=== PATIENT | female | born 1990 | race Caucasian/White ===

== ENCOUNTER 2017-11-10 09:45 | Emergency (ER) | payer SELFPAY ==
[2017-11-10 13:09] LABS: Hematocrit 32 % (35-47); Hemoglobin 11.1 g/dl (12.0-16.0); Mean Corpuscular HGB Conc 34 g/dl (31-36); Mean Corpuscular Hemoglobin 27 pg (27-31); Mean Corpuscular Volume 78 fL (80-97); Mean Platelet Volume 9 um3 (7.4-10.4); Red Blood Count 4.13 10^6/ul (4.0-5.4); Red Cell Distribution Width 13 % (10.5-15)
[2017-11-10 13:19] LABS: Albumin 3.5 g/dL (3.2-5.2); BUN/Creatinine Ratio 9.8 (8-20); Calcium 8.9 mg/dL (8.6-10.3); EGFR African American 239.3 (>60); EGFR Non-African American 186.1 (>60); Potassium 3.4 mmol/L (3.5-5.0); Total Protein 6.5 g/dL (6.4-8.9)
[2017-11-10 13:20] LABS: Total Bilirubin 0.5 mg/dL (0.2-1.0)
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
[2017-11-10 16:10] VITALS: BP 126/68
== END 2017-11-10 16:10 | disposition home or self-care (01) ==
LOC: ED 09:45
DX: O26.893 Other specified pregnancy related conditions, third trimester (principal); S40.812A Abrasion of left upper arm, initial encounter; Z3A.34 34 weeks gestation of pregnancy; V89.2XXA Person injured in unspecified motor-vehicle accident, traffic, initial encounter; Y92.9 Unspecified place or not applicable
CPT/HCPCS: 36415; 80053; 83030; 85025; 86900; 86901; 99282

== ENCOUNTER 2018-01-03 19:51 | Inpatient (IN) | payer OTHER ==
[2018-01-03] MEDS ORDERED: Dinoprostone* 10 MG VAG.SUPP VAGINAL ONE (21:00)
[2018-01-03] MEDS ORDERED: Benzocaine/Menthol LOZ* 1 LOZENGE MT PRN (21:50)
[2018-01-03 23:04] LABS: ABS Basophils 0 10^3/ul (0-0.2); ABS Eosinophils 0.1 10^3/ul (0-0.6); ABS Lymphocytes 1.5 10^3/ul (1.0-4.8); ABS Monocytes 0.4 10^3/ul (0-0.8); ABS Nucleated RBC 0 10^3/ul; Eosinophil % 2.1 % (0-6); Hematocrit 33 % (35-47); Lymphocyte % 20.4 % (25-47); Mean Corpuscular HGB Conc 34 g/dl (31-36); Mean Corpuscular Hemoglobin 25 pg (27-31); Mean Corpuscular Volume 74 fL (80-97); Mean Platelet Volume 10 um3 (7.4-10.4); Nucleated Red Blood Cells % 0; Platelet Count 129 10^3/ul (150-450); Red Blood Count 4.42 10^6/ul (4.0-5.4); Red Cell Distribution Width 15 % (10.5-15); White Blood Count 7.1 10^3/ul (3.5-10.8)
== END 2018-01-04 10:20 | disposition home or self-care (01) | DRG 951 ==
LOC: MCHOBOUT 19:51 → MCHOB 21:50
PROVIDERS: ADMIT Obstetrics & Gynecology; ATTEND Midwife
PROC: 3E0P7VZ Introduction of Hormone into Female Reproductive, Via Natural or Artificial Opening (ICD-10-PCS; principal; 2018-01-03)
PROC: 4A1HXCZ Monitoring of Products of Conception, Cardiac Rate, External Approach (ICD-10-PCS; 2018-01-03)
DX: O48.0 Post-term pregnancy (principal); O40.3XX0 Polyhydramnios, third trimester, not applicable or unspecified; Z3A.40 40 weeks gestation of pregnancy
CPT/HCPCS: 36415; 85025; 86850; 86900; 86901; 99214; G0463

== ENCOUNTER 2018-01-05 20:56 | Inpatient (IN) | payer OTHER ==
[2018-01-05] MEDS: Acetaminophen TAB* 325 MG PO PRN (21:53)
[2018-01-05] MEDS ORDERED: Dinoprostone* 10 MG VAG.SUPP VAGINAL ONE (22:00)
[2018-01-05 22:33] LABS: Urine Appearance Clear; Urine Blood Negative (Negative); Urine Color Straw; Urine Ketones 1+ (Negative); Urine Protein Negative (Negative); Urine Specific Gravity 1.002 (1.010-1.030); Urine Urobilinogen Negative (Negative)
[2018-01-05 22:37] LABS: ABS Basophils 0 10^3/ul (0-0.2); ABS Eosinophils 0 10^3/ul (0-0.6); ABS Lymphocytes 0.5 10^3/ul (1.0-4.8); ABS Monocytes 0.4 10^3/ul (0-0.8); ABS Neutrophils 5.9 10^3/ul (1.5-7.7); ABS Nucleated RBC 0 10^3/ul; Eosinophil % 0.2 % (0-6); Hematocrit 33 % (35-47); Mean Corpuscular HGB Conc 34 g/dl (31-36); Mean Corpuscular Hemoglobin 25 pg (27-31); Mean Corpuscular Volume 73 fL (80-97); Mean Platelet Volume 10 um3 (7.4-10.4); Nucleated Red Blood Cells % 0.1; Platelet Count 118 10^3/ul (150-450); Red Blood Count 4.47 10^6/ul (4.0-5.4); Red Cell Distribution Width 15 % (10.5-15); White Blood Count 6.8 10^3/ul (3.5-10.8)
[2018-01-05] MEDS: Oseltamivir CAP* 75 MG CAP PO SCH (22:52)
[2018-01-05] MEDS: Benzocaine/Menthol LOZ* 1 LOZENGE PO PRN (22:52)
[2018-01-06] MEDS: Acetaminophen TAB* 325 MG PO PRN (03:53)
[2018-01-06] MEDS: Oseltamivir CAP* 75 MG CAP PO SCH ×2 (08:41→22:39)
[2018-01-06] MEDS ORDERED: Oxytocin in LR* 20 UNITS/1,000 ML BAG IVPB ONE (09:19)
[2018-01-06] MEDS ORDERED: Oxytocin in LR* 20 UNITS/1,000 ML BAG IVPB SCH (10:00)
[2018-01-06] MEDS ORDERED: fentaNYL* 50 MCG/ML 2 ML VIAL (100 MCG VIAL) IV ONE (20:06)
[2018-01-06] MEDS ORDERED: Misoprostol TAB* 200 MCG PR ONE (20:11)
[2018-01-06] MEDS ORDERED: Dibucaine 1% 28.35 GM TUBE PR PRN (20:11)
[2018-01-06] MEDS ORDERED: Witch Hazel PAD* JAR TOPICAL PRN (20:11)
[2018-01-06] MEDS ORDERED: Glycerin ADULT SUPP PR PRN (20:11)
[2018-01-06] MEDS ORDERED: OXYTOCIN* 10 UNITS/ML 1 ML VIAL IM ONE (20:11)
[2018-01-06] MEDS ORDERED: Simethicone TAB* 80 MG TAB.CHEW PO SCH (21:00)
[2018-01-06] MEDS ORDERED: fentaNYL* 50 MCG/ML 2 ML VIAL (100 MCG VIAL) ONE (22:12)
[2018-01-06] MEDS: Docusate CAP* 100 MG PO SCH (22:29)
[2018-01-07] MEDS: Acetaminophen TAB* 325 MG PO PRN ×2 (00:27→14:30)
[2018-01-07] MEDS: Ibuprofen TAB* 600 MG PO PRN ×3 (04:23→17:45)
[2018-01-07 06:18] LABS: ABS Basophils 0 10^3/ul (0-0.2); ABS Eosinophils 0 10^3/ul (0-0.6); ABS Lymphocytes 1.3 10^3/ul (1.0-4.8); ABS Monocytes 0.7 10^3/ul (0-0.8); ABS Neutrophils 9.6 10^3/ul (1.5-7.7); ABS Nucleated RBC 0 10^3/ul; Eosinophil % 0.1 % (0-6); Hematocrit 26 % (35-47); Hemoglobin 8.7 g/dl (12.0-16.0); Lymphocyte % 11.1 % (25-47); Mean Corpuscular HGB Conc 33 g/dl (31-36); Mean Corpuscular Hemoglobin 24 pg (27-31); Mean Corpuscular Volume 74 fL (80-97); Mean Platelet Volume 9 um3 (7.4-10.4); Nucleated Red Blood Cells % 0; Platelet Count 132 10^3/ul (150-450); Red Blood Count 3.57 10^6/ul (4.0-5.4); Red Cell Distribution Width 15 % (10.5-15); White Blood Count 11.7 10^3/ul (3.5-10.8)
[2018-01-07] MEDS: Docusate CAP* 100 MG PO SCH ×3 (10:22→20:56)
[2018-01-07] MEDS: Oseltamivir CAP* 75 MG CAP PO SCH ×2 (10:23→20:56)
[2018-01-07] MEDS: Ferrous Gluconate TAB* 324 MG TAB PO SCH ×2 (10:23→20:55)
[2018-01-08] MEDS: Benzocaine/Menthol LOZ* 1 LOZENGE PO PRN (05:34)
[2018-01-08] MEDS: Ibuprofen TAB* 600 MG PO PRN ×2 (05:36→13:44)
[2018-01-08] MEDS: Oseltamivir CAP* 75 MG CAP PO SCH (09:29)
[2018-01-08] MEDS: Ferrous Gluconate TAB* 324 MG TAB PO SCH (09:29)
[2018-01-08] MEDS: Docusate CAP* 100 MG PO SCH ×2 (09:29→13:44)
[2018-01-08 09:51] VITALS: BP 118/71
== END 2018-01-08 13:48 | disposition home or self-care (01) | DRG 560 ==
LOC: MCHOBOUT 20:56 → MCHOB 21:49
PROVIDERS: ADMIT Obstetrics & Gynecology; ATTEND Obstetrics & Gynecology
PROC: 10E0XZZ Delivery of Products of Conception, External Approach (ICD-10-PCS; principal; 2018-01-06)
PROC: 3E033VJ Introduction of Other Hormone into Peripheral Vein, Percutaneous Approach (ICD-10-PCS; 2018-01-06)
PROC: 10907ZC Drainage of Amniotic Fluid, Therapeutic from Products of Conception, Via Natural or Artificial Opening (ICD-10-PCS; 2018-01-06)
DX: O48.0 Post-term pregnancy (principal); O75.2 Pyrexia during labor, not elsewhere classified; O72.1 Other immediate postpartum hemorrhage; O77.0 Labor and delivery complicated by meconium in amniotic fluid; O40.3XX0 Polyhydramnios, third trimester, not applicable or unspecified; O66.0 Obstructed labor due to shoulder dystocia; Z3A.41 41 weeks gestation of pregnancy; Z37.0 Single live birth
CPT/HCPCS: 36415; 59200; 81003; 85025; 87502; 87651; A9270-GY; J2590; J3010

== ENCOUNTER 2018-04-20 09:11 | Emergency (ER) | payer OTHER ==
[2018-04-20] MEDS ORDERED: Lidocaine 1%* 5 ML VIAL INJ ONE (09:34)
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
[2018-04-20 10:33] VITALS: BP 114/83
--- NOTE | 2018-04-20 10:53 | ED ---
Skin Complaint - HPI Summary HPI Summary: Pt. is a 27-year-old female who presents emergency for laceration to her right wrist that occurred just before arrival. Patient states her house store has glass pain is intermittent and she was knocking on the door to her house after she forgot her lunch when the pain broke and she cut her left wrist on glass. Symptoms are mild in severity. Touching affected areas makes symptoms worse. Rest makes symptoms better. States her last tetanus immunization was roughly one year ago. - History of Current Complaint Chief Complaint: EDLacSutureRecheck Time Seen by Provider: 04/20/18 09:26 Stated Complaint: RT HAND LAC Hx Obtained From: Patient Hx Last Menstrual Period: 05/29/16 Pain Intensity: 0 Pain Scale Used: 0-10 Numeric - Allergy/Home Medications Allergies/Adverse Reactions: Allergies Allergy/AdvReac Type Severity Reaction Status Date / Time lamotrigine [From Lamictal] Allergy Hallucinati Verified 04/20/18 09:19 ons Home Medications: Home Medications Norethindrone [Deblitane] 0.35 mg PO DAILY 04/20/18 [History Confirmed 04/20/18] PMH/Surg Hx/FS Hx/Imm Hx Previously Healthy: Yes Endocrine/Hematology History: Denies: Hx Diabetes, Hx Thyroid Disease Cardiovascular History: Denies: Hx Hypertension, Hx Pacemaker/ICD Respiratory History: Denies: Hx Asthma, Hx Chronic Obstructive Pulmonary Disease (COPD) GI History: Denies: Hx Ulcer History: Reports: Other Problems/Disorders - Medical Sep 2016 Denies: Hx Renal Disease Sensory History: Denies: Hx Hearing Aid Psychiatric History: Denies: Hx Panic Disorder - Surgical History Surgery Procedure, Year, and Place: Age 2 tRACHEITIS. RIGHT FOOT SURGERY AGE 14 REMOVAL OF SEWING NEEDLE - Immunization History Date of Tetanus Vaccine: UP TO DATE PER PT Infectious Disease History: No Infectious Disease History: Denies: Hx Clostridium Difficile, Hx Hepatitis, Hx Human Immunodeficiency Virus (HIV), Hx Shingles, Hx Tuberculosis, Hx Known/Suspected VRE, Hx Known/ Suspected VRSA, History Other Infectious Disease, Traveled Outside the [place] in Last 30 Days - Family History Known Family History: Positive: Other - hypothyroidism-mother Negative: Diabetes - Social History Occupation: Employed Full-time Lives: With Family Alcohol Use: None Hx Substance Use: No Substance Use Type: Reports: None Hx Tobacco Use: No Smoking Status (MU): Never Smoked Tobacco Review of Systems Positive: Other - Laceration to right wrist Negative: Weakness, Paresthesia, Numbness All Other Systems Reviewed And Are Negative: Yes Physical Exam Triage Information Reviewed: Yes Vital Signs On Initial Exam: Initial Vitals Temp Pulse Resp BP Pulse Ox 97.7 F 88 16 158/80 99 04/20/18 09:15 04/20/18 09:15 04/20/18 09:15 04/20/18 09:15 04/20/18 09:15 Vital Signs Reviewed: Yes Appearance: Positive: Well-Appearing - Pt. sitting on bed in NAD. Family present. Skin: Positive: Warm, Dry Head/Face: Positive: Normal Head/Face Inspection Eyes: Positive: Normal Neck: Positive: Supple Musculoskeletal: Positive: Other - 2 cm linear laceration noted to the distal right forearm on the volar aspect. No muscle or tendon involvement. Good palpable radial pulse. Superficial abrasions to the 2nd and 4th digits. No tendon involvement. Neurological: Positive: Normal, CN Intact II-III Psychiatric: Positive: Affect/Mood Appropriate Procedures - Laceration/Wound Repair 1 Location: upper extremity Description: Linear Anesthesia: Local, 1.0%, Lido Betadine Prep?: No - hibiclens Laceration/Wound Explored: clean, no foreign body removed Closure: Single Layer Suture Type: Nylon - 3 4-0 Number of Sutures: 3 Layer Closure?: No Sterile Dressing Applied?: Yes Diagnostics - Vital Signs Vital Signs Temp Pulse Resp BP Pulse Ox 04/20/18 10:31 97.7 F 60 14 114/83 99 04/20/18 09:15 97.7 F 88 16 158/80 99 - Laboratory Lab Statement: Any lab studies that have been ordered have been reviewed, and results considered in the medical decision making process. Course/Dx - Course Course Of Treatment: Pt. presenting for simple arm laceration that was repaired as noted above. Suture removal in 7-10 days. Keep wound clean and dry. To return to ER for redness, swelling or drainage from wound site. - Diagnoses Provider Diagnoses: Abrasion, Laceration Discharge - Sign-Out/Discharge Documenting (check all that apply): Discharge/Admit/Transfer - Discharge Plan Condition: Good Disposition: HOME Forms: *Work Release Referrals: Franky Garcia MD [Primary Care Provider] - Additional Instructions: Suture removal in 7-10 days Keep wound clean and dry Return to ER for redness, swelling or drainage from suture site - Billing Disposition and Condition Condition: GOOD Disposition: HOME
== END 2018-04-20 10:31 | disposition home or self-care (01) ==
LOC: ED 09:11
DX: S61.511A Laceration without foreign body of right wrist, initial encounter (principal); W25.XXXA Contact with sharp glass, initial encounter; Y92.89 Other specified places as the place of occurrence of the external cause; S60.418A Abrasion of other finger, initial encounter
CPT/HCPCS: 12001; 99281

== ENCOUNTER 2018-07-02 22:46 | Emergency (ER) | payer OTHER ==
[2018-07-02] MEDS ORDERED: NS 0.9% 1000 ML* 1,000 ML IV ONE (23:46)
[2018-07-03 00:29] LABS: ABS Basophils 0 10^3/ul (0-0.2); ABS Eosinophils 0.2 10^3/ul (0-0.6); ABS Lymphocytes 1.8 10^3/ul (1.0-4.8); ABS Monocytes 0.3 10^3/ul (0-0.8); ABS Neutrophils 3.2 10^3/ul (1.5-7.7); ABS Nucleated RBC 0 10^3/ul; Eosinophil % 3.1 % (0-6); Hematocrit 33 % (35-47); Lymphocyte % 32.6 % (25-47); Mean Corpuscular HGB Conc 34 g/dl (31-36); Mean Corpuscular Hemoglobin 24 pg (27-31); Mean Corpuscular Volume 70 fL (80-97); Mean Platelet Volume 10.3 um3 (7.4-10.4); Nucleated Red Blood Cells % 0.1; Platelet Count 164 10^3/ul (150-450); Red Blood Count 4.67 10^6/ul (4.00-5.40); Red Cell Distribution Width 21 % (10.5-15); White Blood Count 5.6 10^3/ul (3.5-10.8)
[2018-07-03 00:32] LABS: EGFR Non-African American 73.2 (>60)
[2018-07-03 00:37] LABS: Urine Appearance Clear; Urine Blood Negative (Negative); Urine Color Straw; Urine Ketones Negative (Negative); Urine Protein Negative (Negative); Urine Specific Gravity 1.009 (1.010-1.030); Urine Urobilinogen Negative (Negative)
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
[2018-07-03] MEDS ORDERED: Levothyroxine TAB* 100 MCG TAB PO ONE (01:15)
[2018-07-03 01:46] VITALS: BP 121/64
== END 2018-07-03 01:40 | disposition home or self-care (01) ==
LOC: ED 22:46
DX: G73.7 Myopathy in diseases classified elsewhere (principal); E03.9 Hypothyroidism, unspecified; R53.1 Weakness; E34.8 Other specified endocrine disorders
CPT/HCPCS: 36415; 80053; 81003; 82550; 83605; 83735; 83874; 84436; 84443; 84702; 85025; 85652; 86140; 99282; A9270-GY

== ENCOUNTER 2018-07-07 10:32 | Emergency (ER) | payer OTHER ==
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
--- NOTE | 2018-07-07 11:08 | UC ---
UC General HPI - HPI Summary HPI Summary: The pt is a 27 y/o female presenting to the [facility] c/o UE and LE numbness since starting Synthroid medication one week ago. Before that, she had muscle aches lasting about 2 weeks for which she went to the ED and was diagnosed with hypothyroidism. She saw her PCP yesterday (07/06/2018) and was referred to [facility] for further evaluation. Her PCP is Franky Bacon MD at [facility]. The pt notes tingling in the fingers, unusual forgetfulness, confusion, and difficulty concentrating. This is scribe Maria Guadalupe Lantigua documenting for attending Jack Tamez. I, Jack Tamez MD, personally performed the services described in this documentation as scribed in my presence and it is both accurate and complete. - History of Current Complaint Chief Complaint: EDGeneral Stated Complaint: ABNORMAL LABS Time Seen by Provider: 07/07/18 11:00 Hx Obtained From: Patient Hx Last Menstrual Period: 05/29/16 Onset/Duration: Lasting Weeks - 1 week, Still Present, Worse Since - Today Current Severity: Mild Pain Intensity: 4 Associated Signs & Symptoms: Positive: Confusion, Recent Medication Changes - Started taking Synthroid one week ago for hypothyroidism, Other - Positive: notes tingling in the fingers, unusual forgetfulness, confusion, and difficulty concentrating - Allergy/Home Medications Allergies/Adverse Reactions: Allergies Allergy/AdvReac Type Severity Reaction Status Date / Time lamotrigine [From Lamictal] Allergy Hallucinati Verified 07/07/18 11:11 ons PMH/Surg Hx/FS Hx/Imm Hx Previously Healthy: No Endocrine History: Hypothyroidism GI/ History: Other - Medical in September 2016 Other GI/ History: x - Surgical History Surgical History: Yes Surgery Procedure, Year, and Place: Age 2 tRACHEITIS. RIGHT FOOT SURGERY AGE 14 REMOVAL OF SEWING NEEDLE - Family History Known Family History: Positive: Other - hypothyroidism-mother Negative: Diabetes - Social History Occupation: Employed Full-time Lives: With Family Alcohol Use: None Substance Use Type: None Smoking Status (MU): Never Smoked Tobacco - Immunization History Most Recent Influenza Vaccination: NEVER GETS IT Most Recent Tetanus Shot: UTD Most Recent Pneumonia Vaccination: never Review of Systems Constitutional: Other - Positive:Unsual forgetfulness and difficulty concentrating Neurological: Numbness - UE and LE, Other - Positive: Tingling in the fingers All Other Systems Reviewed And Are Negative: Yes Physical Exam - Summary Physical Exam Summary: Appearance: The patient is well-nourished in no acute distress and in no acute pain. Skin: The skin is warm and dry and skin color reflects adequate perfusion. HEENT: The head is normocephalic and atraumatic. The pupils are equal and reactive. The conjunctivae are clear and without drainage. Nares are patent and without drainage. Mouth reveals moist mucous membranes and the throat is without erythema and exudate. The external ears are intact. The ear canals are patent and without drainage. The tympanic membranes are intact. Neck: The neck is supple with full range of motion and non-tender. There are no carotid bruits. There is no neck vein distension. Respiratory: Chest is non-tender. Lungs are clear to auscultation and breath sounds are symmetrical and equal. Cardiovascular: Heart is regular rate and rhythm. There is no murmur or rub auscultated. There is no peripheral edema and pulses are symmetrical and equal. Abdomen: The abdomen is soft and non-tender. There are normal bowel sounds heard in all four quadrants and there is no organomegaly palpated. Musculoskeletal: There is no back tenderness noted. Extremities are non-tender with full range of motion. There is good capillary refill. There is no peripheral edema or calf tenderness elicited. Neurological: Patient is alert and oriented to person, place and time. The patient has symmetrical motor strength in all four extremities. Cranial nerves are grossly intact. Deep tendon reflexes are symmetrical and equal in all four extremities. Psychiatric: The patient has an appropriate affect and does not exhibit any anxiety or depression. Triage Information Reviewed: Yes Vital Signs: Initial Vital Signs Temp 97.5 F 07/07/18 10:39 Pulse 75 07/07/18 10:39 Resp 16 07/07/18 10:39 BP 122/70 07/07/18 10:39 Pulse Ox 100 07/07/18 10:39 Vital Signs Reviewed: Yes Re-Evaluation - Re-Evaluation First Eval Re-Evaluation Time: 13:38 Change: Unchanged - The pt feels unchanged and is ready for discharge. Course/Dx - Course Course Of Treatment: Ms. Olivares has been fighting with myalgia and neurological symptoms for several weeks. She has been diagnosed as having a myopathy and hypothyroidism. She has had her thyroid hormone replacement therapy but it hasn't helped her symptomatology. Her most concerning symptomatology today is that her hands are tingling when she wakes up in the morning and feel tired and full during the day and seemed to be sluggish when she tries to use them. She also complains of difficulty concentrating today. Her TSH in T3 are improved as is her CK. Her hand symptomatology may be carpal tunnel syndrome. I spoke with Dr. Pratt about the need for an urgent MRI and he felt that this could be worked up as an outpatient. I recommended close follow-up. - Differential Dx - Multi-Symptom Provider Diagnoses: Parasthesias, Myopathy - Physician Notifications Discussed Patient Care With: Yazan Ann - Hospitalist Time Discussed With Above Provider: 11:23 Instructed by Provider To: Other - The provider recommended conducting additional lab tests before conducting neural exams. Discharge - Sign-Out/Discharge Documenting (check all that apply): Patient Departure - DC - Discharge Plan Condition: Stable Disposition: HOME Patient Education Materials: Paresthesia (ED) Referrals: Franky Garcia MD [Primary Care Provider] - 3 Days Additional Instructions: Return to ED for any new or worsening symptoms - Billing Disposition and Condition Condition: STABLE Disposition: Home
[2018-07-07 11:12] LABS: ABS Basophils 0 10^3/ul (0-0.2); ABS Eosinophils 0.2 10^3/ul (0-0.6); ABS Lymphocytes 1.1 10^3/ul (1.0-4.8); ABS Monocytes 0.2 10^3/ul (0-0.8); ABS Neutrophils 2.4 10^3/ul (1.5-7.7); ABS Nucleated RBC 0 10^3/ul; Eosinophil % 4.3 % (0-6); Hematocrit 33 % (35-47); Lymphocyte % 27.6 % (25-47); Mean Corpuscular HGB Conc 33 g/dl (31-36); Mean Corpuscular Hemoglobin 24 pg (27-31); Mean Corpuscular Volume 71 fL (80-97); Mean Platelet Volume 9.1 um3 (7.4-10.4); Nucleated Red Blood Cells % 0; Platelet Count 146 10^3/ul (150-450); Red Blood Count 4.62 10^6/ul (4.00-5.40); Red Cell Distribution Width 21 % (10.5-15); White Blood Count 3.9 10^3/ul (3.5-10.8)
[2018-07-07 11:28] LABS: EGFR Non-African American 81.3 (>60)
[2018-07-07 14:19] VITALS: BP 125/82
[2018-07-09 17:21] LABS: B. miyamotoi PCR, B Negative (Negative)
[2018-07-10 15:56] LABS: B garinii/B afzelii PCR Negative (Negative)
== END 2018-07-07 14:18 | disposition home or self-care (01) ==
LOC: ED 10:32
DX: R20.2 Paresthesia of skin (principal); G72.9 Myopathy, unspecified; E03.9 Hypothyroidism, unspecified; Z79.899 Other long term (current) drug therapy; Z88.8 Allergy status to other drugs, medicaments and biological substances
CPT/HCPCS: 36415; 80053; 82550; 82607; 82746; 83090; 84439; 84443; 85025; 85652; 86038; 86140; 87476; 87798; 99282

== ENCOUNTER 2018-08-03 10:17 | Emergency (ER) | payer OTHER ==
[2018-08-03 10:33] VITALS: BP 121/88
--- OUTSIDE RECORDS SUMMARY | 2018-08-03 10:39 | XMS REPORT | Continuity of Care Document ---
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 [place] [id number] Effective: 2017 Policy Number: Venu Duke [id number] Medicaid PayID: 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 [employer] Tobacco Use Start: Unknown Never Smoked Cigarettes ETOH Use Occasionally consumes alcohol Tobacco Use Start: Unknown Patient has never smoked Exercise Type/Frequency Does not exercise Allergies, Adverse Reactions, Alerts Date Description Reaction Status Severity Comments 09/04/2015 Lamictal Active hallucinations Medications Medication Date Status Form Strength Qnty SIG Indications Ordering Provider Levothyroxine 07/11/ Active Tablets 112mcg 30tabs 1 by mouth Franky Sodium 2018 every day MD Jose Control / Active Unknown Pill 0000 Wellbutrin SR 03/09/ Hx Tablets ER 150mg 60tabs take one F32.89 Franky 2018 - 12HR tablet by Jose 06/01/ mouth , 2018 twice a day Iron (Ferrous 02/21/ Hx Tablets 256(28Fe) 60tabs 1 tab by Franky Pressley) 2018 - mg mouth Souleymaneetderks 06/01/ twice a , 2018 day 09/22/ Hx Tablets 27-1mg 30tabs Take one N91.1 Franky 2015 - by mouth Souleymaneetderks 11/02/ daily , 2015 Iron (Ferrous 06/09/ Hx Tablets 256(28Fe) 60tabs 1 tab by Franky Pressley) 2015 - mg mouth Souleym[place]etderks 02/21/ twice a , 2017 day Mupirocin 06/08/ Hx Ointment 2% 22gm 1 dose L02.818 Franky 2016 - apply to Soule[place]etderks 02/21/ affected , 2018 area three times a day Vitamin D-3 25/ Hx Capsules 1000Unit 60caps 2 tab by Franky 2016 - mouth Heetderks 02/21/ daily , 2018 Vitamin B-12 /25/ Hx Tablets 1000mcg 30tabs 1 tab by Franky 2016 - Sub mouth Souleymaneetderks 02/21/ daily , 2018 Vitamin B6 /25/ Hx Tablets 250mg 30tabs 1 tab by Franky 2016 - mouth Heetderks 02/21/ daily , 2018 Fish Oil 25/ Hx Capsules 1000mg 30caps 1 tab by Franky Magana-Mary 2015 - mouth Heetderks 02/21/ daily , 2018 Albenza /16/ Hx Tablets 200mg 4tabs 2 tab by Franky 2014 - mouth Heetderks 02/21/ every 2 , 2018 weeks / Hx Tablets 1 by mouth Unknown 0000 - every day 2017 Levothyroxine / Hx Tablets 100mcg Unknown Sodium 0000 - 2017 Immunizations CPT Code Status Date Vaccine Lot # [id number] Given 11/02/2016 HPV Vaccine 9 (Gardasil 9), 3 Dose [id number] Given 06/08/2016 HPV Vaccine 9 (Gardasil 9), 3 Dose [id number] Given 01/13/2016 Tdap (Adacel) [id number] Given 01/13/2016 HPV Vaccine 9 (Gardasil 9), 3 Dose [id number] Refused 02/21/2018 Influenza Virus Vaccine, Quadrivalent, 3 Yr > Quad , Preserv Free Vital Signs Date Vital Result Comment 08/02/2018 10:32am Weight 190.00 lb Weight 86.184 kg BP Systolic 110 mmHg BP Diastolic 72 mmHg Heart Rate 68 /min Body Temperature 97.9 F Respiratory Rate 12 /min 07/19/2018 11:09am Weight 189.00 lb Weight 85.730 kg BP Systolic 102 mmHg BP Diastolic 70 mmHg Heart Rate 88 /min Body Temperature 97.7 F Respiratory Rate 16 /min 07/11/2018 11:39am Weight 190.00 lb Weight 86.184 kg BP Systolic 125 mmHg BP Diastolic 80 mmHg Heart Rate 80 /min Body Temperature 97.9 F O2 % BldC Oximetry 96 % 07/03/2018 4:20pm Weight 190.00 lb Weight 86.184 kg BP Systolic 110 mmHg BP Diastolic 72 mmHg Heart Rate 72 /min Body Temperature 97.4 F Respiratory Rate 16 /min 06/28/2018 10:35am Weight 190.00 lb Weight 86.184 kg BP Systolic 128 mmHg BP Diastolic 88 mmHg Heart Rate 78 /min Body Temperature 97.5 F Respiratory Rate 16 /min O2 % BldC Oximetry 99 % 06/01/2018 2:35pm Weight 184.00 lb Weight 83.462 kg BP Systolic 118 mmHg BP Diastolic 76 mmHg Heart Rate 80 /min Body Temperature 97.5 F Respiratory Rate 15 /min O2 % BldC Oximetry 98 % 04/09/2018 2:02pm Weight 170.00 lb Weight 77.112 kg BP Systolic 124 mmHg BP Diastolic 82 mmHg Heart Rate 92 /min Body Temperature 96.8 F Respiratory Rate 16 /min 03/09/2018 9:07am Weight 173.00 lb Weight 78.473 kg BP Systolic 122 mmHg BP Diastolic 74 mmHg Heart Rate 88 /min Body Temperature 97.0 F Respiratory Rate 16 /min 02/21/2018 11:06am Weight 171.00 lb Weight 77.566 kg BP Systolic 118 mmHg BP Diastolic 80 mmHg Heart Rate 84 /min Body Temperature 98.0 F Height 63 inches 5'3" BMI (Body Mass Index) 30.3 kg/m2 O2 % BldC Oximetry 99 % 11/02/2016 3:34pm Weight 201.00 lb Weight 91.174 kg BP Systolic 118 mmHg BP Diastolic 88 mmHg Heart Rate 77 /min Body Temperature 98.1 F Respiratory Rate 16 /min O2 % BldC Oximetry 98 % 09/22/2016 2:00pm Weight 200.00 lb Weight 90.720 kg BP Systolic 110 mmHg BP Diastolic 74 mmHg Heart Rate 96 /min O2 % BldC Oximetry 98 % 06/08/2016 3:10pm Weight 196.00 lb Weight 88.906 kg BP Systolic 126 mmHg BP Diastolic 78 mmHg Heart Rate 78 /min Body Temperature 97.8 F Respiratory Rate 18 /min 01/19/2016 5:03pm Weight 182.00 lb Weight 82.555 kg BP Systolic 122 mmHg BP Diastolic 66 mmHg Heart Rate 72 /min Body Temperature 98.6 F 01/13/2016 11:14am Weight 184.00 lb Weight 83.462 kg BP Systolic 130 mmHg BP Diastolic 75 mmHg Heart Rate 64 /min 12/14/2015 4:51pm Weight 185.00 lb Weight 83.916 kg BP Systolic 128 mmHg BP Diastolic 76 mmHg Heart Rate 84 /min Body Temperature 98.4 F O2 % BldC Oximetry 98 % 09/04/2015 10:19am Weight 174.00 lb Weight 78.926 kg BP Systolic 110 mmHg BP Diastolic 64 mmHg Heart Rate 68 /min Height 63 inches 5'3" BMI (Body Mass Index) 30.8 kg/m2 Results Test Date Facility Test Result H/L Range Note CBC Auto Diff 08/02/2018 [facility] White Blood 4.0 10^3/uL 3.5-10.8 [phone] Count Red Blood Count 4.65 10^6/uL 4.00-5.40 Hemoglobin 11.2 g/dL Low 12.0-16.0 Hematocrit 34 % Low 35-47 Mean Corpuscular Volume 74 fL Low 80-97 1 Mean Corpuscular Hemoglobin 24 pg Low 27-31 Mean Corpuscular HGB Conc 33 g/dL 31-36 Red Cell Distribution Width 19 % High 10.5-15 Platelet Count 170 10^3/uL 150-450 Mean Platelet Volume 9.7 um3 7.4-10.4 Abs Neutrophils 2.3 10^3/uL 1.5-7.7 Abs Lymphocytes 1.2 10^3/uL 1.0-4.8 Abs Monocytes 0.3 10^3/uL 0-0.8 Abs Eosinophils 0.2 10^3/uL 0-0.6 Abs Basophils 0 10^3/uL 0-0.2 Abs Nucleated RBC 0 10^3/uL Granulocyte % 57.7 % 38-83 Lymphocyte % 30.1 % 25-47 Monocyte % 6.7 % 0-7 Eosinophil % 5.0 % 0-6 Basophil % 0.5 % 0-2 Nucleated Red Blood Cells % 0.1 Laboratory test 08/02/2018 [facility] TSH (Thyroid < pending> finding [phone] Stim Horm) Free T4 (Free Thyroxine) <pending> T3 Total <pending> Creatine Kinase(CK) <pending> CBC Auto Diff 07/19/2018 [facility] White Blood 3.9 10^3/uL 3.5-10.8 [phone] Count Red Blood Count 4.62 10^6/uL 4.00-5.40 Hemoglobin 11.3 g/dL Low 12.0-16.0 Hematocrit 34 % Low 35-47 Mean Corpuscular Volume 73 fL Low 80-97 2 Mean Corpuscular Hemoglobin 24 pg Low 27-31 Mean Corpuscular HGB Conc 34 g/dL 31-36 Red Cell Distribution Width 21 % High 10.5-15 Platelet Count 164 10^3/uL 150-450 Mean Platelet Volume 10.1 um3 7.4-10.4 Abs Neutrophils 2.4 10^3/uL 1.5-7.7 Abs Lymphocytes 1.1 10^3/uL 1.0-4.8 Abs Monocytes 0.3 10^3/uL 0-0.8 Abs Eosinophils 0.1 10^3/uL 0-0.6 Abs Basophils 0 10^3/uL 0-0.2 Abs Nucleated RBC 0 10^3/uL Granulocyte % 61.2 % 38-83 Lymphocyte % 27.4 % 25-47 Monocyte % 7.0 % 0-7 Eosinophil % 3.7 % 0-6 Basophil % 0.7 % 0-2 Nucleated Red Blood Cells % 0 Comp Metabolic Panel 07/19/2018 [facility] Sodium 139 mmol/L 135-145 [phone] Potassium 3.8 mmol/L 3.5-5.0 Chloride 106 mmol/L 101-111 Co2 Carbon Dioxide 26 mmol/L 22-32 Anion Gap 7 mmol/L 2-11 Glucose 93 mg/dL 70-100 Blood Urea Nitrogen 14 mg/dL 6-24 Creatinine 0.77 mg/dL 0.51-0.95 BUN/Creatinine Ratio 18.2 8-20 Calcium 9.2 mg/dL 8.6-10.3 Total Protein 7.3 g/dL 6.4-8.9 Albumin 4.9 g/dL 3.2-5.2 Globulin 2.4 g/dL 2-4 Albumin/Globulin Ratio 2.0 1-3 Total Bilirubin 0.70 mg/dL 0.2-1.0 Alkaline Phosphatase 56 U/L 34-104 Alt 28 U/L 7-52 Ast 22 U/L 13-39 Egfr Non- 89.3 >60 Egfr 108.0 >60 3 Laboratory test 07/19/2018 [facility] TSH (Thyroid 9.86 High 0.34-5.60 4 finding [phone] Stim Horm) mcIU/mL Free T4 (Free Thyroxine) 0.87 ng/dL 0.61-1.12 5 T3 Total 101 ng/dL 87-178 6 Creatine Kinase(CK) 192 U/L 10-223 7 Laboratory test 07/07/2018 [facility] Homocysteine 10 mcmol/L 8 finding [phone] CBC Auto Diff 07/07/2018 [facility] White Blood Count 3.9 10^3/uL 3.5-5 [phone] 0.8 Red Blood Count 4.62 10^6/uL 4.00-5.40 Hemoglobin 11.0 g/dL Low 12.0-16.0 Hematocrit 33 % Low 35-47 Mean Corpuscular Volume 71 fL Low 80-97 9 Mean Corpuscular Hemoglobin 24 pg Low 27-31 Mean Corpuscular HGB Conc 33 g/dL 31-36 Red Cell Distribution Width 21 % High 10.5-15 Platelet Count 146 10^3/uL Low 150-450 Mean Platelet Volume 9.1 um3 7.4-10.4 Abs Neutrophils 2.4 10^3/uL 1.5-7.7 Abs Lymphocytes 1.1 10^3/uL 1.0-4.8 Abs Monocytes 0.2 10^3/uL 0-0.8 Abs Eosinophils 0.2 10^3/uL 0-0.6 Abs Basophils 0 10^3/uL 0-0.2 Abs Nucleated RBC 0 10^3/uL Granulocyte % 62.5 % 38-83 Lymphocyte % 27.6 % 25-47 Monocyte % 5.0 % 0-7 Eosinophil % 4.3 % 0-6 Basophil % 0.6 % 0-2 Nucleated Red Blood Cells % 0 Comp Metabolic Panel 07/07/2018 [facility] Sodium 139 mmol/L 135-145 [phone] Potassium 4.0 mmol/L 3.5-5.0 Chloride 107 mmol/L 101-111 Co2 Carbon Dioxide 26 mmol/L 22-32 Anion Gap 6 mmol/L 2-11 Glucose 91 mg/dL 70-100 Blood Urea Nitrogen 16 mg/dL 6-24 Creatinine 0.84 mg/dL 0.51-0.95 BUN/Creatinine Ratio 19.0 8-20 Calcium 9.4 mg/dL 8.6-10.3 Total Protein 7.4 g/dL 6.4-8.9 Albumin 4.7 g/dL 3.2-5.2 Globulin 2.7 g/dL 2-4 Albumin/Globulin Ratio 1.7 1-3 Total Bilirubin 0.50 mg/dL 0.2-1.0 Alkaline Phosphatase 59 U/L 34-104 Alt 29 U/L 7-52 Ast 26 U/L 13-39 Egfr Non- 81.3 >60 Egfr 98.4 >60 10 Laboratory test 07/07/2018 [facility] C Reactive 2.28 mg/L <8.01 finding [phone] Protein TSH (Thyroid Stimulating Horm) 38.92 mcIU/mL High 0.34-5.60 Free T4 0.58 ng/dL Low 0.61-1.12 Erythrocyte Sed Rate 11 mm/Hr 0-14 Creatine Kinase 291 U/L High 10-223 Folate 13.00 ng/mL >3.99 Vitamin B12 405 pg/mL 180-914 11 Anti Nuclear Antibody 0.2 U 12 Tick-Borne Panel 07/07/2018 [facility] Babesia Negative Negative PCR Blood [phone] microti PCR Babesia ducani Negative Negative Babesia divergens/Mo-1 Negative Negative 13 Anaplasma phagocytophilum Negative Negative Ehrlichia chaffeensis Negative Negative Ehrlichia ewingii/canis Negative Negative Ehrlichia muris-like Negative Negative 14 B. miyamotoi PCR, B Negative Negative 15 Lyme Disease 07/07/2018 [facility] B burgdorferi Negative Negative PCR [phone] PCR, Blood B mayonii PCR Negative Negative B garinii/B afzelii PCR Negative Negative Lyme Disease PCR Comment See Comment 16 Laboratory test 07/06/2018 [facility] Thyroperoxidase AB 40.97 High <9 17 finding [phone] IU/mL Thyroglobulin Antibody 2.1 IU/mL <4.0 18 Laboratory test 07/06/2018 [facility] Free T4 (Free 0.58 Low 0.61-1.12 19 finding [phone] Thyroxine) ng/dL T3 Total 83 ng/dL Low 87-178 20 Basic Metabolic 07/06/2018 [facility] Sodium 140 mmol /L 135-145 Panel [phone] Potassium 3.7 mmol/L 3.5-5.0 Chloride 106 mmol/L 101-111 Co2 Carbon Dioxide 27 mmol/L 22-32 Anion Gap 7 mmol/L 2-11 Glucose 84 mg/dL 70-100 Blood Urea Nitrogen 14 mg/dL 6-24 Creatinine 0.90 mg/dL 0.51-0.95 BUN/Creatinine Ratio 15.6 8-20 Calcium 9.6 mg/dL 8.6-10.3 Egfr Non- 75.1 >60 Egfr 90.9 >60 21 Laboratory test 07/06/2018 [facility] Creatine 351 U/ L High 10-223 22 finding [phone] Kinase(CK) Urinalysis 07/03/2018 [facility] Urine Color Straw Profile [phone] Urine Appearance Clear Urine Specific Kohler 1.009 Low 1.010-1.030 Urine pH 6.0 5-9 Urine Urobilinogen Negative Negative Urine Ketones Negative Negative Urine Protein Negative Negative Urine Leukocytes Negative Negative Urine Blood Negative Negative Urine Nitrite Negative Negative Urine Bilirubin Negative Negative Urine Glucose Negative Negative Laboratory test 07/03/2018 [facility] Lactic Acid 1.0 mmol/L 0.5-2.0 23 finding [phone] CBC Auto Diff 07/03/2018 [facility] White Blood 5.6 10^3/uL 3.5-10.8 [phone] Count Red Blood Count 4.67 10^6/uL 4.00-5.40 Hemoglobin [...] Red Blood Cells % 0.1 Laboratory test 07/03/2018 [facility] Erythrocyte Sed 11 mm/Hr 0-14 finding [phone] Rate Comp Metabolic 07/03/2018 [facility] Sodium 137 mmol/ L 135-145 Panel [phone] Potassium 3.6 mmol/L 3.5-5.0 Chloride 106 mmol/L [...] Egfr Non- 73.2 >60 Egfr 88.6 >60 24 Laboratory test 07/03/2018 [facility] Magnesium 2.3 mg/dL 1.9-2.7 finding [phone] Creatine Kinase 467 U/L High 10-223 C Reactive Protein < 1.00 mg/L <8.01 Myoglobin 45.6 ng/mL 14.3-65.8 HCG < 0.60 mIU/mL 25 Thyroxine 1.70 g/mL Low 6.09-12.23 TSH (Thyroid Stimulating Horm) 72.83 mcIU/mL High 0.34-5.60 Laboratory test 06/28/2018 [facility] Rheumatoid < 10 IU/mL <15 26 finding [phone] Factor Erythrocyte Sed Rate 9 mm/Hr 0-14 27 Cyclic Citrullinated Pep Igg <15.6 U 28 Nuclear AB (Mira) By Ifa Igg <1:80 (Negative) 29 Anti Ssa/Ro <0.2 U 30 Anti SSB LA <0.2 U 31 Anti Double Stranded Dna AB <12.3 IU/mL 32 Vitamin D Total 25(Oh) 18.7 ng/mL Low 20-50 33 Creatine Kinase(CK) 574 U/L High 10-223 34 CBC Auto Diff 04/09/2018 [facility] Red Blood 4.87 10 ^6/uL 4.0-5.4 [phone] Count White Blood Count 4.1 10^3/uL 3.5-10.8 Hemoglobin [...] % 0.1 Platelet Count 184 10^3/uL 150-450 35 Mean Platelet Volume 10.3 um3 7.4-10.4 Retic Count 04/09/2018 [facility] Retic Count 1.0 % 0.5-1.5 [phone] Mean Retic Volume 96.5 Immature Retic Fraction 0.37 RBC Retic Count 4.87 10^6/uL 4.6-6.2 Corrected Retic Count 0.8 % 0.5-1.5 Maturation Factor Retic 1.5 Retic Index 0.50 Hematocrit for Retic CNT 34 % Low 35-47 Laboratory test 04/09/2018 [facility] Ferritin 3.4 ng /mL Low 11-307 36 finding [phone] Iron & Iron Binding 04/09/2018 [facility] Iron 22 g /dL Low 50-212 Capacity [phone] Unsaturated Iron Binding 381 g/dL Total Iron Binding Capacity 403 g/dL 250-450 Transferrin 288 mg/dL 203-362 % Iron Saturation 5 % Low 15-55 Iron & Iron Binding 02/21/2018 [facility] Iron 16 g /dL Low 50-212 Capacity [phone] Unsaturated Iron Binding 440 g/dL Total Iron Binding Capacity 456 g/dL High 250-450 Transferrin 326 mg/dL 203-362 % Iron Saturation 4 % Low 15-55 Laboratory test 02/21/2018 [facility] Ferritin < 10.0 ng/mL Low 11-307 37 finding [phone] TSH (Thyroid Stim Horm) 1.33 mcIU/mL 0.34-5.60 38 T3 Total 1.10 ng/mL 0.87-1.78 39 Free T4 (Free Thyroxine) 0.87 ng/dL 0.61-1.12 40 Vitamin B12 367 pg/mL 180-914 41 Vitamin D Total 25(Oh) 18.5 ng/mL Low 20-50 42 CBC Auto Diff 11/10/2017 [facility] White Blood 9.0 10^3/uL 3.5-10.8 43 [phone] Count Red Blood Count 4.13 10^6/uL 4.0-5.4 Hemoglobin 11.1 g/dL Low 12.0-16.0 Hematocrit 32 % Low 35-47 Mean Corpuscular Volume 78 fL Low 80-97 Mean Corpuscular Hemoglobin 27 pg 27-31 Mean Corpuscular HGB Conc 34 g/dL 31-36 Red Cell Distribution Width 13 % 10.5-15 Platelet Count 147 10^3/uL Low 150-450 Mean Platelet Volume 9 um3 7.4-10.4 Abs Neutrophils 7.5 10^3/uL 1.5-7.7 Abs Lymphocytes 1.0 10^3/uL 1.0-4.8 Abs Monocytes 0.4 10^3/uL 0-0.8 Abs Eosinophils 0.2 10^3/uL 0-0.6 Abs Basophils 0 10^3/uL 0-0.2 Abs Nucleated RBC 0 10^3/uL Granulocyte % 83.1 % High 38-83 Lymphocyte % 10.6 % Low 25-47 Monocyte % 4.5 % 1-9 Eosinophil % 1.7 % 0-6 Basophil % 0.1 % 0-2 Nucleated Red Blood Cells % 0 Comp Metabolic Panel 11/10/2017 [facility] Sodium 135 mmol/L 133-145 [phone] Potassium 3.4 mmol/L Low 3.5-5.0 Chloride 106 mmol/L 101-111 Co2 Carbon Dioxide 22 mmol/L 22-32 Anion Gap 7 mmol/L 2-11 Glucose 96 mg/dL 70-100 Blood Urea Nitrogen 4 mg/dL Low 6-24 Creatinine 0.41 mg/dL Low 0.51-0.95 BUN/Creatinine Ratio 9.8 8-20 Calcium 8.9 mg/dL 8.6-10.3 Total Protein 6.5 g/dL 6.4-8.9 Albumin 3.5 g/dL 3.2-5.2 Globulin 3.0 g/dL 2-4 Albumin/Globulin Ratio 1.2 1-3 Total Bilirubin 0.50 mg/dL 0.2-1.0 Alkaline Phosphatase 99 U/L 34-104 Alt 13 U/L 7-52 Ast 14 U/L 13-39 Egfr Non- 186.1 >60 Egfr 239.3 >60 44 Abo/RH Type 11/10/2017 [facility] Patient Blood A Positive [phone] Type Laboratory test 11/10/2017 [facility] NEG 45 finding [phone] Hemoglobin Stain Laboratory test 11/02/2016 [facility] TSH (Thyroid 5.10 mcIU/mL 0.34- 46 finding [phone] Stim Horm) 5.60 T3 Total 1.33 ng/mL 0.87-1.78 47 Free T4 (Free Thyroxine) 0.67 ng/dL 0.61-1.12 48 Vitamin D Total 25(Oh) 24.8 ng/mL Low 30-50 49 Thyroperoxidase AB 14.74 IU/mL High <9 50 Laboratory test 10/26/2016 [facility] Magnesium 2.2 mg/dL 1.9-2.7 finding [phone] Creatine Kinase 123 U/L 10-223 Troponin-I (TnI) 0.00 ng/mL <0.04 51 Thyroxine 5.91 ?g/dL Low 6.09-12.23 TSH (Thyroid Stimulating Horm) 10.02 mcIU/mL High 0.34-5.60 Comp Metabolic Panel 10/26/2016 [facility] Sodium 136 mmol/L 133-145 [phone] Potassium 3.4 mmol/L Low 3.5-5.0 Chloride 106 [...] Egfr Non- 94.9 >60 Egfr 122.0 >60 52 Laboratory test 10/26/2016 [facility] B-Type Natriuretic 29 pg/mL 53 finding [phone] Peptide BNP Lactic Acid 1.1 mmol/L 0.5-2.0 54 CBC Auto Diff 10/26/2016 [facility] White Blood 5.5 10^3/uL 3.5-10.8 [phone] Count Red Blood Count 4.57 10^6/uL 4.0-5.4 Hemoglobin [...] Red Blood Cells % 0.1 Laboratory test 09/21/2016 [facility] HCG 7823.00 55 finding [phone] mIU/mL Comp Metabolic 06/08/2016 [facility] Sodium 137 mmol/ L 133-14 Panel [phone] Potassium 3.8 mmol/L 3.5-5.0 Chloride 104 mmol/L [...] Egfr Non- 111.1 >60 Egfr 142.8 >60 56 CBC Auto Diff 06/08/2016 [facility] White Blood 5.5 10^3/uL 3.5-10.8 [phone] Count Red Blood Count 4.86 10^6/uL 4.0-5.4 Hemoglobin [...] Red Blood Cells % 0.7 Laboratory test 06/08/2016 [facility] TSH (Thyroid 3.89 mcIU/mL 0.34-5.60 57 finding [phone] Stim Horm) Vitamin D Total 25(Oh) 18.4 ng/mL Low 30-50 58 Iron & Iron Binding 06/08/2016 [facility] Iron 38 g /dL Low 50-212 Capacity [phone] Unsaturated Iron Binding 360 g/dL Total Iron Binding Capacity 398 g/dL 250-450 % Iron Saturation 10 % Low 15-55 Laboratory test 06/08/2016 [facility] Ferritin < 10.0 Low 11-307 59 finding [phone] Laboratory test 06/08/2016 [facility] Wound SEE RESULT 60 finding [phone] Culture/Sensi BELOW 1 Consistent with Previous Results Reported on 07/19/18 2 Consistent with Previous Results Reported on 07/07/18 3 Because ethnic data is not always readily [...] 15-29 5 Kidney failure <15 (or dialysis) 4 [id number] 5 [id number] 6 [id number] 7 [id number] 8 REFERENCE VALUE <=13 (Fasting) ADDITIONAL INFORMATION This test was developed and its performance characteristics determined by [facility] in a manner consistent with CLIA requirements. This test has not been cleared or approved by the U.S. Food and Drug Administration. Test Performed by: [address] [id number] 9 Consistent with Previous Results Reported on 04/09/18 10 Because ethnic data is not always [...] 5 Kidney failure <15 (or dialysis) 11 Normal Range 180 to 914 Indeterminate Range 145 to 180 Deficient Range <145 12 REFERENCE VALUE <=1.0 (Negative) Test Performed by: [facility] - [address] [address] 13 ADDITIONAL INFORMATION This test was developed and its performance characteristics determined by [facility] in a manner consistent with CLIA requirements. This test has not been cleared or approved by the U.S. Food and Drug Administration. 14 ADDITIONAL INFORMATION This test was developed and its performance characteristics determined by [facility] in a manner consistent with CLIA requirements. This test has not been cleared or approved by the U.S. Food and Drug Administration. 15 ADDITIONAL INFORMATION This test was developed and its performance characteristics determined by [facility] in a manner consistent with CLIA requirements. This test has not been cleared or approved by the U.S. Food and Drug Administration. Test Performed by: [facility] - [address] [address] 16 A negative result does not exclude infection with Borrelia burgdorferi. Serologic testing as per CDC guidelines may be indicated. ADDITIONAL INFORMATION This test was developed and its performance characteristics determined by [facility] in a manner consistent with CLIA requirements. This test has not been cleared or approved by the U.S. Food and Drug Administration. Test Performed by: [facility] - [address] [address] 17 [id number] 18 ADDITIONAL INFORMATION The thyroglobulin antibody testing method is an immunoenzymatic assay manufactured by [id number] and performed on the [employer] DXI 800. Values obtained from different assay methods or kits may be different and cannot be used interchangeably. The results cannot be interpreted as absolute evidence for the presence or absence of malignant disease. Test Performed by: [facility] - [facility] [address] [place] [address] 19 [id number] 20 [id number] 21 Because ethnic data is not always readily [...] 15-29 5 Kidney failure <15 (or dialysis) 22 [id number] 23 [facility] Severe Sepsis and Septic Shock Management Bundle Measure requires all lactic acids initially measuring >2.0 mmol/L be repeated. 24 Because ethnic data is not always readily [...] 15-29 5 Kidney failure <15 (or dialysis) 25 <5.0 Negative 5.0 - 25.0 Indeterminate (Repeat testing recommended after 72 hours) >25.0 Positive Perimenopausal women can display HCG levels of up to 20 mIU/mL 26 [id number] 27 [id number] 28 REFERENCE VALUE <20.0 (Negative) Test Performed by: [address] [address] 29 <1:80 (Negative) REFERENCE VALUE <1:80 (Negative) Test Performed by: [address] [id number] 30 REFERENCE VALUE <1.0 (Negative) Test Performed by: [facility] [facility] [address] [place] [address] 31 REFERENCE VALUE <1.0 (Negative) Test Performed by: [facility] [address] [place] [address] 32 REFERENCE VALUE <30.0 (Negative) Test Performed by: [facility] [place] [address] [place] [address] 33 [id number] Platelet count confirmed by estimate 36 [id number] 37 [id number] 38 [id number] 39 [id number] 40 [id number] 41 Normal Range 180 to 914 Indeterminate Range 145 to 180 Deficient Range <145 42 [id number] 34 WEEKS PREG MVA 44 Because ethnic data is not always readily [...] 15-29 5 Kidney failure <15 (or dialysis) 45 Hemoglobin Interpretation: % Cells Volume of Maternal Hemorrhage 0.0 - 0.0045 Up to 15 ml 0.0046 - 0.0090 15 - 30 ml 0.0091 - 0.0135 30 - 45 ml 0.0136 - 0.0180 45 - 60 ml 0.0181 - 0.0225 60 - 75 ml 46 [id number] 47 [id number] 48 [id number] 49 [id number] 50 [id number] 51 NOTE: Critical Troponin is now >0.03 ng/mL. 99th percentile=0.04 ng/mL Troponin results at [facility] and [facility] are not interchangeable. 52 Because ethnic data is not always readily [...] 15-29 5 Kidney failure <15 (or dialysis) 53 >100 to <200 pg/mL: likely compensated congestive heart failure (CHF) 200 to 400 pg/mL: likely moderate CHF >400 pg/mL: likely moderate to severe CHF 54 [facility] Severe Sepsis and Septic Shock Management Bundle Measure requires all lactic acids initially measuring >2.0 mmol/L be repeated. 55 <5.0 Negative 5.0 - 25.0 Indeterminate (Repeat testing recommended after 72 hours) >25.0 Positive Perimenopausal women can display HCG levels of up to 20 mIU/mL 56 Because ethnic data is not always readily [...] 15-29 5 Kidney failure <15 (or dialysis) 57 [id number] 58 [id number] 59 [id number] 60 SEE RESULT BELOW Name: RADHA DUKE : [address]: Franky Garcia MD Acct: [id number] Unit: [id number] AGE: 25 Location: [facility] Re06/08/16 SEX: F Status: REG REF SPEC: [id number] DILEEP: 06/08/16-[address]: Franky Garcia MD REQ: [id number] RECD: 06/08/16 STATUS: COMP _ SOURCE: WOUND SPDESC: ORDERED: Culture Stain COMMENTS: [id number] Specimen Description L ARM Procedure Result Reported [...] performed at Main Lab DEPARTMENT OF PATHOLOGY, [address] [place] [address] René Tariq M.D. Director [facility] # [id number] Patient: RADHA DUKE [id number] (Continued) Specimen: [id number] Collected: 06/08/16-1530 Received: 06/08/16 (Continued) Procedure Result Reported Site Wound/Misc Culture Final (continued) 06/10/16- 1143 1. STAPHYLOCOCCUS AUREUS (continued) M.I.C. RX --------- ------ Imipenem-Deduced S * Ampicillin/Sulbactam-Deduced S Cefazolin-Deduced S * These antibiotics are not available in the [facility] Formulary Contact the Microbiology Department for any additional antibiotic reporting. * ML - MAIN LAB ([facility]) . END OF REPORT * ML=Testing performed at Main Lab DEPARTMENT OF PATHOLOGY, [address] [place] [address] René Tariq M.D. Director [facility] # [id number] Procedures Date Code Description Status 01/13/2016 37762 Excision Of Skin Tags-Up To 15 Completed Encounters Type Date Location Provider Dx Diagnosis Office Visit 08/02/2018 Main Office Arpita Hightower, E03.9 Hypothyroidism , 10:30a [employer] unspecified M79.1 Myalgia N64.4 Mastodynia Office Visit 07/19/2018 11:15a Main Office Arpita E03.9 Hypothyroidism, Katja, [employer]ER unspecified Office Visit 07/11/2018 11:45a Main Office Franky E03.9 Hypothyroidism, MD Jose unspecified G72.9 Myopathy, unspecified D50.8 Other iron deficiency anemias Office Visit 07/03/2018 4:15p Main Office Franky E03.9 HypothyroidismJose MD unspecified G72.9 Myopathy, unspecified Office Visit 06/28/2018 10:00a Main Office Lebron Balbuena R53.81 Other malaise [employer] M79.1 Myalgia E03.9 Hypothyroidism, unspecified Office Visit 06/01/2018 2:30p Main Office Franky Garcia R53.81 Other malaise MD Office Visit 04/09/2018 2:00p Main Office Franky Garcia, D50.8 Other iron MD deficiency anemias Office Visit 03/09/2018 9:00a Main Office Franky Garcia D50.8 Other iron MD deficiency anemias F32.89 Other specified depressive episodes Office Visit 02/21/2018 11:00a Main Office Franky Garcia 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) E03.9 Hypothyroidism, unspecified F32.9 Major depressive disorder, single episode, unspecified Office Visit 11/02/2016 3:30p Main Office Franky E03.9 Hypothyroidism, MD Jose unspecified Z23 Encounter for immunization Office Visit 09/22/2016 1:45p Main Office Franky Garcia, N91.1 Secondary MD amenorrhea Office Visit 06/08/2016 3:00p Main Office Franky Garcia, L02.818 Cutaneous abscess MD of other sites H00.015 Hordeolum externum left lower eyelid H00.011 Hordeolum externum right upper eyelid R53.83 Other fatigue Z23 Encounter for immunization Office Visit 01/19/2016 4:45p Main Office Nupur Cassidy, A09 Infectious [employer] gastroenteritis and colitis, unspecified Office Visit 12/14/2015 4:45p Main Office Franky J06.9 Acute upper MD Jose respiratory infection, unspecified F43.10 Post-traumatic stress disorder, unspecified Office Visit 09/04/2015 10:15a Main Office Franky Garcia, R07.1 Chest pain on MD breathing F43.12 Post-traumatic stress disorder, chronic Plan of Treatment Future Appointment(s):08/06/2018 9:30 am - Leti Licea NP at Main [id number] - Arpita Hightower NPE03.9 Hypothyroidism, unspecifiedComments: Discussed with Patient is known to be iron deficient which could be causing symptoms. previously ordered iron infusion, but patient has not had time to complete infusion.I stressed importance of making time for iron infusion as this improve symptoms and further assist in diagnostics. Patient agrees to set up infusion for this weekWill reassess labs today also for further evaluation.Educated on new/worsening symptoms and when to call/return. Patient stated understanding and agrees to planM79.1 MyalgiaComments:As tjcgkZ01.4 MastodyniaComments:No acute concerns today.Discussed with SS No signs/symptoms of infectionEducated on s/s of infectionor worsening symptoms and when to call/ return or go to EDPatient referred to CHRISTIANE Norman for lactationconsult next weekPatient stated understanding and agrees to planFollow up:follow up with tawny for consult next week
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
--- OUTSIDE RECORDS SUMMARY | 2018-08-03 10:40 | XMS REPORT ---
:1990 External Reference #:[id number] Author Organization [facility] Address [address] [place] [address] Phone [phone] Care Team Providers Name Role Phone Franky Garcia MD Care Team Information Hospital Educator Unavailable Payers Type Date Identification Numbers Payment Provider Subscriber Commercial Effective: Policy Number: Venu Duke 2015 [id number] Medicaid Expires: 2016 PayID: [id number] [address] [place] [phone] Commercial Effective: Policy Number: Venu Duke 2017 [id number] Medicaid PayID: [id number] [address] [place] [phone] Medigap Part B Effective: Policy Number: Medicaid/Computer Joya Shafer 2016 [id number] [employer] [place] Expires: 2016 Group Name: 1 1 [address] PayID: [id number] [place] [address] Problems Description No Information Family History Date Family Member(s) Problem(s) Comments General Heart Disease Father Hypothyroid Social History Type Date Description Comments Marital Status Significant Other Lives With Male Partner Occupation [employer] Cigarette Use Never Smoked Cigarettes ETOH [...] one N91.1 Franky 2015 - by mouth Jose 11/02/ daily , 2015 Iron (Ferrous 06/09/ Hx Tablets 256(28Fe) 60tabs 1 tab by Franky Pressley) 2016 - mg mouth Souleymaneetrashmiks 02/21/ twice a , 2017 day Mupirocin 06/08/ Hx Ointment 2% 22gm 1 dose L02.818 Franky 2016 - apply to Jose 02/21/ affected , 2018 area three times a day Vitamin D-3 /25/ Hx Capsules 1000Unit 60caps 2 tab by Franky 2016 - mouth Souleymaneetrashmiks 02/21/ daily , 2018 Vitamin B-12 /25/ Hx Tablets 1000mcg 30tabs 1 tab by Franky 2016 - Sub mouth Souleymaneetrashmiks 02/21/ daily , 2018 Vitamin B6 25/ Hx Tablets 250mg 30tabs 1 tab by Franky 2016 - mouth Souleymaneetrashmiks 02/21/ daily , 2018 Fish Oil 25/ [...] CPT Code Status Date Vaccine Lot # [id number] Given 11/02/2016 HPV Vaccine 9 (Gardasil 9), 3 Dose [id number] Given 06/08/2016 HPV Vaccine 9 (Gardasil 9), 3 Dose [id number] Given 01/13/2016 Tdap (Adacel) [id number] 93535 Given 01/13/2016 HPV Vaccine 9 (Gardasil 9), 3 Dose [id number] Refused 02/21/2018 Influenza Virus Vaccine, Quadrivalent, 3 Yr > Quad , Preserv Free Vital Signs Date Vital Result Comment 07/19/2018 Weight 189.00 lb Weight in kg's 85.730 BP Systolic 102 mmHg BP Diastolic 70 mmHg Heart Rate 88 /min Body Temperature 97.7 F Respiratory Rate 16 /min 07/11/2018 Weight 190.00 lb Weight in kg's 86.184 BP Systolic 125 mmHg BP Diastolic 80 mmHg Heart Rate 80 /min Body Temperature 97.9 F O2 % BldC Oximetry 96 % 07/03/2018 Weight 190.00 lb Weight in kg's [...] Result H/L Range Note Laboratory test finding 07/19/2018 TSH (Thyroid Stim Horm) <pending> Free T4 (Free Thyroxine) <pending> T3 Total <pending> Creatine Kinase(CK) <pending> Laboratory test finding 07/07/2018 Homocysteine 10 mcmol/L 1 CBC Auto Diff 07/07/2018 White Blood Count 3.9 10^3/uL 3.5-10.8 Red Blood Count 4.62 10^6/uL 4.00-5.40 Hemoglobin 11.0 g/dL Low 12.0-16.0 Hematocrit 33 % Low 35-47 Mean Corpuscular Volume 71 fL Low 80-97 2 Mean Corpuscular Hemoglobin [...] Cells % 0 Comp Metabolic Panel 07/07/2018 Sodium 139 mmol/L 135-145 Potassium 4.0 mmol/L 3.5-5.0 Chloride 107 mmol/L [...] Egfr Non- 81.3 >60 Egfr 98.4 >60 3 Laboratory test finding 07/07/2018 C Reactive Protein 2.28 mg/L <8.01 TSH (Thyroid Stimulating Horm) 38.92 mcIU/mL High 0.34-5.60 Free T4 0.58 ng/dL Low 0.61-1.12 Erythrocyte Sed Rate 11 mm/Hr 0-14 Creatine Kinase 291 U/L High 10-223 Folate 13.00 ng/mL >3.99 Vitamin B12 405 pg/mL 180-914 4 Anti Nuclear Antibody 0.2 U 5 Tick-Borne Panel PCR Blood 07/07/2018 Babesia microti PCR Negative Negative Babesia ducani Negative Negative Babesia divergens/Mo-1 Negative Negative 6 Anaplasma phagocytophilum Negative Negative Ehrlichia chaffeensis Negative Negative Ehrlichia ewingii/canis Negative Negative Ehrlichia muris-like Negative Negative 7 B. miyamotoi PCR, B Negative Negative 8 Lyme Disease PCR 07/07/2018 B burgdorferi PCR, Blood Negative Negative B mayonii PCR Negative Negative B garinii/B afzelii PCR Negative Negative Lyme Disease PCR Comment See Comment 9 Laboratory test finding 07/06/2018 Thyroperoxidase AB 40.97 IU/mL High <9 10 Thyroglobulin Antibody 2.1 IU/mL <4.0 11 Laboratory test finding 07/06/2018 Free T4 (Free 0.58 ng/dL Low 0.61-1.12 12 Thyroxine) T3 Total 83 ng/dL Low 87-178 13 Basic Metabolic Panel 07/06/2018 Sodium 140 mmol/L 135-145 Potassium 3.7 mmol/L 3.5-5.0 Chloride 106 mmol/L 101-111 Co2 Carbon Dioxide 27 mmol/L 22-32 Anion Gap 7 mmol/L 2-11 Glucose 84 mg/dL 70-100 Blood Urea Nitrogen 14 mg/dL 6-24 Creatinine 0.90 mg/dL 0.51-0.95 BUN/Creatinine Ratio 15.6 8-20 Calcium 9.6 mg/dL 8.6-10.3 Egfr Non- 75.1 >60 Egfr 90.9 >60 14 Laboratory test finding 07/06/2018 Creatine Kinase(CK) 351 U/L High 10- 223 15 Urinalysis Profile 07/03/2018 Urine Color Straw Urine Appearance Clear Urine Specific [place] 1.009 Low 1.010-1.030 Urine pH 6.0 5-9 Urine Urobilinogen Negative Negative Urine Ketones Negative Negative Urine Protein Negative Negative Urine Leukocytes Negative Negative Urine Blood Negative Negative Urine Nitrite Negative Negative Urine Bilirubin Negative Negative Urine Glucose Negative Negative Laboratory test finding 07/03/2018 Lactic Acid 1.0 mmol/L 0.5-2.0 16 CBC Auto Diff 07/03/2018 White Blood Count [...] Cells % 0.1 Laboratory test finding 07/03/2018 Erythrocyte Sed Rate 11 mm/Hr 0-14 Comp Metabolic Panel 07/03/2018 Sodium 137 mmol/L [...] Egfr Non- 73.2 >60 Egfr 88.6 >60 17 Laboratory test finding 07/03/2018 Magnesium 2.3 mg/dL 1.9-2.7 Creatine Kinase 467 U/L High 10-223 C Reactive Protein < 1.00 mg/L <8.01 Myoglobin 45.6 ng/mL 14.3-65.8 HCG < 0.60 mIU/mL 18 Thyroxine 1.70 g/mL Low 6.09-12.23 TSH (Thyroid Stimulating Horm) 72.83 mcIU/mL High 0.34-5.60 Laboratory test finding 06/28/2018 Rheumatoid Factor < 10 IU/mL <15 19 Erythrocyte Sed Rate 9 mm/Hr 0-14 20 Cyclic Citrullinated Pep Igg <15.6 U 21 Nuclear AB (Mira) By Ifa Igg <1:80 (Negative) 22 Anti Ssa/Ro <0.2 U 23 Anti SSB LA <0.2 U 24 Anti Double Stranded Dna AB <12.3 IU/mL 25 Vitamin D Total 25(Oh) 18.7 ng/mL Low 20-50 26 Creatine Kinase(CK) 574 U/L High 10-223 27 CBC Auto Diff 04/09/2018 Red Blood Count [...] % 0.1 Platelet Count 184 10^3/uL 150-450 28 Mean Platelet Volume 10.3 um3 7.4-10.4 Retic Count 04/09/2018 Retic Count 1.0 % 0.5-1.5 Mean Retic Volume 96.5 Immature Retic Fraction 0.37 RBC Retic Count 4.87 10^6/uL 4.6-6.2 Corrected Retic Count 0.8 % 0.5-1.5 Maturation Factor Retic 1.5 Retic Index 0.50 Hematocrit for Retic CNT 34 % Low 35-47 Laboratory test finding 04/09/2018 Ferritin 3.4 ng/mL Low 11-307 29 Iron & Iron Binding Capacity 04/09/2018 Iron 22 g/dL Low 50-212 Unsaturated Iron Binding 381 g/dL Total Iron Binding Capacity 403 g/dL 250-450 Transferrin 288 mg/dL 203-362 % Iron Saturation 5 % Low 15-55 Iron & Iron Binding Capacity 02/21/2018 Iron 16 g/dL Low 50-212 Unsaturated Iron Binding 440 g/dL Total Iron Binding Capacity 456 g/dL High 250-450 Transferrin 326 mg/dL 203-362 % Iron Saturation 4 % Low 15-55 Laboratory test finding 02/21/2018 Ferritin < 10.0 ng/mL Low 11-307 30 TSH (Thyroid Stim Horm) 1.33 mcIU/mL 0.34-5.60 31 T3 Total 1.10 ng/mL 0.87-1.78 32 Free T4 (Free Thyroxine) 0.87 ng/dL 0.61-1.12 33 Vitamin B12 367 pg/mL 180-914 34 Vitamin D Total 25(Oh) 18.5 ng/mL Low 20-50 35 CBC Auto Diff 11/10/2017 White Blood Count 9.0 10^3/uL 3.5-10.8 36 Red Blood Count 4.13 10^6/uL 4.0-5.4 36 Hemoglobin 11.1 g/dL Low 12.0-16.0 36 Hematocrit 32 % Low 35-47 36 Mean Corpuscular Volume 78 fL Low 80-97 36 Mean Corpuscular Hemoglobin 27 pg 27-31 36 Mean Corpuscular HGB Conc 34 g/dL 31-36 36 Red Cell Distribution Width 13 % 10.5-15 36 Platelet Count 147 10^3/uL Low 150-450 36 Mean Platelet Volume 9 um3 7.4-10.4 36 Abs Neutrophils 7.5 10^3/uL 1.5-7.7 36 Abs Lymphocytes 1.0 10^3/uL 1.0-4.8 36 Abs Monocytes 0.4 10^3/uL 0-0.8 36 Abs Eosinophils 0.2 10^3/uL 0-0.6 36 Abs Basophils 0 10^3/uL 0-0.2 36 Abs Nucleated RBC 0 10^3/uL 36 Granulocyte % 83.1 % High 38-83 36 Lymphocyte % 10.6 % Low 25-47 36 Monocyte % 4.5 % 1-9 36 Eosinophil % 1.7 % 0-6 36 Basophil % 0.1 % 0-2 36 Nucleated Red Blood Cells % 0 36 Comp Metabolic Panel 11/10/2017 Sodium 135 mmol/L 133-145 36 Potassium 3.4 mmol/L Low 3.5-5.0 36 Chloride 106 mmol/L 101-111 36 Co2 Carbon Dioxide 22 mmol/L 22-32 36 Anion Gap 7 mmol/L 2-11 36 Glucose 96 mg/dL 70-100 36 Blood Urea Nitrogen 4 mg/dL Low 6-24 36 Creatinine 0.41 mg/dL Low 0.51-0.95 36 BUN/Creatinine Ratio 9.8 8-20 36 Calcium 8.9 mg/dL 8.6-10.3 36 Total Protein 6.5 g/dL 6.4-8.9 36 Albumin 3.5 g/dL 3.2-5.2 36 Globulin 3.0 g/dL 2-4 36 Albumin/Globulin Ratio 1.2 1-3 36 Total Bilirubin 0.50 mg/dL 0.2-1.0 36 Alkaline Phosphatase 99 U/L 34-104 36 Alt 13 U/L 7-52 36 Ast 14 U/L 13-39 36 Egfr Non- 186.1 >60 36 Egfr 239.3 >60 36, 37 Abo/RH Type 11/10/2017 Patient Blood Type A Positive 36 Laboratory test 11/10/2017 Hemoglobin NEG 36, 38 finding Stain Laboratory test 11/02/2016 TSH (Thyroid Stim 5.10 mcIU/mL 0.34-5.60 39 finding Horm) T3 Total 1.33 ng/mL 0.87-1.78 40 Free T4 (Free Thyroxine) 0.67 ng/dL 0.61-1.12 41 Vitamin D Total 25(Oh) 24.8 ng/mL Low 30-50 42 Thyroperoxidase AB 14.74 IU/mL High <9 43 Laboratory test finding 10/26/2016 Magnesium 2.2 mg/dL 1.9-2.7 Creatine Kinase 123 U/L 10-223 Troponin-I (TnI) 0.00 ng/mL <0.04 44 Thyroxine 5.91 ?g/dL Low 6.09-12.23 TSH (Thyroid [...] Egfr Non- 94.9 >60 Egfr 122.0 >60 45 Laboratory test finding 10/26/2016 B-Type Natriuretic Peptide BNP 29 pg/mL 46 Lactic Acid 1.1 mmol/L 0.5-2.0 47 CBC Auto Diff 10/26/2016 White Blood Count [...] Laboratory test finding 09/21/2016 HCG 7823.00 mIU/mL 48 Comp Metabolic Panel 06/08/2016 Sodium 137 mmol/L [...] Egfr Non- 111.1 >60 Egfr 142.8 >60 49 CBC Auto Diff 06/08/2016 White Blood Count [...] TSH (Thyroid Stim 3.89 mcIU/mL 0.34- 5.60 50 Horm) Vitamin D Total 25(Oh) 18.4 ng/mL Low 30-50 51 Iron & Iron Binding Capacity 06/08/2016 Iron 38 g/dL Low 50-212 Unsaturated Iron Binding 360 g/dL Total Iron Binding Capacity 398 g/dL 250-450 % Iron Saturation 10 % Low 15-55 Laboratory test 06/08/2016 Ferritin < 10.0 ng/mL Low 11-307 52 finding Laboratory test 06/08/2016 Wound Culture/Sensi SEE RESULT BELOW 53 finding 1 REFERENCE VALUE <=13 (Fasting) ADDITIONAL INFORMATION This test was developed and its performance characteristics determined by [facility] in a manner consistent with CLIA requirements. This test has not been cleared or approved by the U.S. Food and Drug Administration. Test Performed by: [facility] - [address] [address] 2 Consistent with Previous Results Reported on 04/09/18 3 Because ethnic data is not always [...] 5 Kidney failure <15 (or dialysis) 4 Normal Range 180 to 914 Indeterminate Range 145 to 180 Deficient Range <145 5 REFERENCE VALUE <=1.0 (Negative) Test Performed by: [facility] - [address] [address] 6 ADDITIONAL INFORMATION This test was developed and its performance characteristics determined by [facility] in a manner consistent with CLIA requirements. This test has not been cleared or approved by the U.S. Food and Drug Administration. 7 ADDITIONAL INFORMATION This test was developed and its performance characteristics determined by [facility] in a manner consistent with CLIA requirements. This test has not been cleared or approved by the U.S. Food and Drug Administration. 8 ADDITIONAL INFORMATION This test was developed and its performance characteristics determined by [facility] in a manner consistent with CLIA requirements. This test has not been cleared or approved by the U.S. Food and Drug Administration. Test Performed by: [facility] - [address] [address] A negative result does not exclude infection with Borrelia burgdorferi. Serologic testing as per CDC guidelines may be indicated. ADDITIONAL INFORMATION This test was developed and its performance characteristics determined by [facility] in a manner consistent with CLIA requirements. This test has not been cleared or approved by the U.S. Food and Drug Administration. Test Performed by: [facility] - [facility] [address] [place] [address] 10 [id number] 11 ADDITIONAL INFORMATION The thyroglobulin antibody testing method is an immunoenzymatic assay manufactured by [employer]. and performed on the [employer] DXI 800. Values obtained from different assay methods or kits may be different and cannot be used interchangeably. The results cannot be interpreted as absolute evidence for the presence or absence of malignant disease. Test Performed by: [facility] - [facility] [address] [place] [address] 12 [id number] 13 [id number] 14 Because ethnic data is not always readily [...] 15-29 5 Kidney failure <15 (or dialysis) 15 [id number] 16 [facility] Severe Sepsis and Septic Shock Management Bundle Measure requires all lactic acids initially measuring >2.0 mmol/L be repeated. 17 Because ethnic data is not always readily [...] 15-29 5 Kidney failure <15 (or dialysis) 18 <5.0 Negative 5.0 - 25.0 Indeterminate (Repeat testing recommended after 72 hours) >25.0 Positive Perimenopausal women can display HCG levels of up to 20 mIU/mL 19 [id number] 20 [id number] 21 REFERENCE VALUE <20.0 (Negative) Test Performed by: [address] [address] 22 <1:80 (Negative) REFERENCE VALUE <1:80 (Negative) Test Performed by: [facility] [address] [place] [address] 23 REFERENCE VALUE <1.0 (Negative) Test Performed by: [facility] [address] [place] [address] 24 REFERENCE VALUE <1.0 (Negative) Test Performed by: [facility] [address] [place] [address] 25 REFERENCE VALUE <30.0 (Negative) Test Performed by: [facility] - [address] [address] 26 [id number] 27 [id number] 28 Platelet count confirmed by estimate 29 [id number] 30 [id number] 31 [id number] 32 [id number] 33 [id number] 34 Normal Range 180 to 914 Indeterminate Range 145 to 180 Deficient Range <145 35 [id number] 36 34 WEEKS PREG MVA 37 Because ethnic data is not always readily [...] 15-29 5 Kidney failure <15 (or dialysis) 38 Hemoglobin Interpretation: % Cells Volume of Maternal Hemorrhage 0.0 - 0.0045 Up to 15 ml 0.0046 - 0.0090 15 - 30 ml 0.0091 - 0.0135 30 - 45 ml 0.0136 - 0.0180 45 - 60 ml 0.0181 - 0.0225 60 - 75 ml 39 [id number] 40 [id number] 41 [id number] 42 [id number] 43 [id number] 44 NOTE: Critical Troponin is now >0.03 ng/mL. 99th percentile=0.04 ng/mL Troponin results at [facility] are not interchangeable. 45 Because ethnic data is not always readily [...] 15-29 5 Kidney failure <15 (or dialysis) 46 >100 to <200 pg/mL: likely compensated congestive heart failure (CHF) 200 to 400 pg/mL: likely moderate CHF >400 pg/mL: likely moderate to severe CHF 47 [facility] Severe Sepsis and Septic Shock Management Bundle Measure requires all lactic acids initially measuring >2.0 mmol/L be repeated. 48 <5.0 Negative 5.0 - 25.0 Indeterminate (Repeat testing recommended after 72 hours) >25.0 Positive Perimenopausal women can display HCG levels of up to 20 mIU/mL 49 Because ethnic data is not always readily [...] 15-29 5 Kidney failure <15 (or dialysis) 50 [id number] 51 [id number] 52 [id number] 53 SEE RESULT BELOW Name: JOYA DUKE Hollis : [address]: Franky Garcia MD Acct: [id number] Unit: [id number] AGE: 25 Location: [facility] Re06/08/16 SEX: F Status: REG REF SPEC: [id number] DILEEP: 06/08/16-[address]: Franky Garcia MD REQ: [id number] RECD: 06/08/16 STATUS: COMP _ SOURCE: WOUND SPDESC: ORDERED: Culture Stain COMMENTS: [id number] Specimen Description L ARM Procedure Result Reported [...] performed at Main Lab DEPARTMENT OF PATHOLOGY, [address] [place] [address] René Tariq M.D. Director [facility] # [id number] Patient: JOYA DUKE [id number] (Continued) Specimen: [id number] Collected: 06/08/16-1530 Received: 06/08/16 (Continued) Procedure Result Reported Site Wound/Misc Culture Final (continued) 06/10/16- 1143 1. STAPHYLOCOCCUS AUREUS (continued) M.I.C. RX --------- ------ Imipenem-Deduced S * Ampicillin/Sulbactam-Deduced S Cefazolin-Deduced S * These antibiotics are not available in the [facility] Formulary Contact the Microbiology Department for any additional antibiotic reporting. * ML - MAIN LAB ([facility]) . END OF REPORT * ML=Testing performed at Main Lab DEPARTMENT OF PATHOLOGY, [address] [place] [address] René Tariq M.D. Director [facility] # [id number] Procedures Date CPT Code Description Status 01/13/2016 58713 Excision Of Skin Tags-Up To 15 Completed Encounters Type Date Location Provider CPT E/M Dx Office Visit 07/11/2018 11:45a [place] [address] E03.9 G72.9 D50.8 Office Visit 07/03/2018 4:15p [place] [address] E03.9 G72.9 Office Visit 06/28/2018 10:00a Main Office Lebron LopezAlix Balbuena [facility] [address] R53.81 M79.1 E03.9 Office Visit 06/01/2018 2:30p [place] [address] R53.81 Office Visit 04/09/2018 2:00p [place] [address] D50.8 Office Visit 03/09/2018 9:00a [place] [address] D50.8 F32.89 Office Visit 02/21/2018 11:00a [place] [address] D50.0 E03.9 F32.9 Office Visit 11/02/2016 3:30p [place] [address] E03.9 Z23 Office Visit 09/22/2016 1:45p [place] [address] N91.1 Office Visit 06/08/2016 3:00p [place] [address] L02.818 H00.015 H00.011 R53.83 Z23 Office Visit 01/19/2016 4:45p Main Office Nupur Cassidy [facility] [address] A09 Office Visit 12/14/2015 4:45p [place] [address] J06.9 F43.10 Office Visit 09/04/2015 10:15a [place] [address] R07.1 F43.12 Plan of Care Future Appointment(s):08/03/2018 9:45 am - Franky Garcia MD at Main Zsyhrc3507/19/2018 - Arpita Hightower NPE03.9 Hypothyroidism, unspecifiedComments :No acute concerns today.Patient otherwise feels wellWe will start with labs and have patient follow up with GHDiscussed having a low threshold for returning or going to EDPatient stated understanding and agrees to plan
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
--- NOTE | 2018-08-03 11:03 | UC ---
Breast Complaint - HPI Summary HPI Summary: right breast pain , with decreased milk production for the last several weeks. Noted no swelling or fever, - History of Current Complaint Hx Obtained From: Patient Breast Chief Complaint: Pain Onset/Duration: Started Weeks Ago Timing: Intermittent Breast Pain Aggravating Factors: Breast Feeding Breast Pain Alleviating Factors: Heat - Additional Pertinent History Breast History: Breastfed Previously with Good Experience - breast fed son without difficulty with first child - Allergy/Home Medications Allergies/Adverse Reactions: Allergies Allergy/AdvReac Type Severity Reaction Status Date / Time kiwi Allergy Airway Verified 08/03/18 10:33 Obstruction lamotrigine [From Lamictal] Allergy Hallucinati Verified 08/03/18 10:33 ons Home Medications: Home Medications Levothyroxine TAB* [Synthroid 100 MCG TAB*] 112 mcg PO DAILY 08/03/18 [History Confirmed 08/03/18] PMH/Surg Hx/FS Hx/Imm Hx Previously Healthy: Yes Endocrine History: Hypothyroidism GI/ History: Other - on oral contraceptives Other GI/ History: negative - Surgical History Surgical History: Yes Surgery Procedure, Year, and Place: Age 2 tRACHEITIS. RIGHT FOOT SURGERY AGE 14 REMOVAL OF SEWING NEEDLE - Family History Known Family History: Positive: Other - hypothyroidism-mother Negative: Diabetes - Social History Alcohol Use: None Substance Use Type: None Smoking Status (MU): Never Smoked Tobacco - Immunization History Most Recent Influenza Vaccination: NEVER GETS IT Most Recent Tetanus Shot: UTD Most Recent Pneumonia Vaccination: never Review of Systems Constitutional: Negative Skin: Negative Eyes: Negative ENT: Negative Respiratory: Negative Cardiovascular: Negative Gastrointestinal: Negative Genitourinary: Negative Motor: Negative Neurovascular: Negative Musculoskeletal: Negative Neurological: Negative Is Patient Immunocompromised?: No All Other Systems Reviewed And Are Negative: Yes Physical Exam Triage Information Reviewed: Yes Appearance: Well-Appearing Vital Signs: Initial Vital Signs Temp 36.6 C 08/03/18 10:30 Pulse 70 08/03/18 10:30 Resp 18 08/03/18 10:30 BP 121/88 08/03/18 10:30 Pulse Ox 100 08/03/18 10:30 Vital Signs Reviewed: Yes Eye Exam: Normal Eyes: Positive: Conjunctiva Clear ENT: Positive: Normal ENT inspection Neck exam: Normal Neck: Positive: Supple, No Lymphadenopathy Skin: Positive: Other - right breast without swelling or erythema noted, tender upper inner quadrant , without fluctuance or mass lesion palpated Breast Pain Course/Dx - Diagnoses Provider Diagnoses: Mastodynia of right breast Discharge - Sign-Out/Discharge Documenting (check all that apply): Patient Departure All imaging exams completed and their final reports reviewed: Yes - Discharge Plan Condition: Good Disposition: HOME Patient Education Materials: and Nipple Soreness (ED), and Breast Engorgement (ED) Referrals: Franky Garcia MD [Primary Care Provider] - Dashawn Mora MD [Medical Doctor] - - Billing Disposition and Condition Condition: GOOD Disposition: Home
== END 2018-08-03 12:00 | disposition home or self-care (01) ==
LOC: UCEAST 10:17
DX: N64.4 Mastodynia (principal); E03.9 Hypothyroidism, unspecified; Z79.899 Other long term (current) drug therapy
CPT/HCPCS: 99201; G0463

== ENCOUNTER 2018-08-08 10:40 | Emergency (ER) | payer OTHER ==
--- NOTE | 2018-08-08 13:10 | RAD ---
Indication: One month medial 3:00 region RIGHT breast pain. Lactating however not recently from the RIGHT breast due to baby's preference. Comparison: No relevant prior exams available on the [facility] PACS for comparison. Technique: Complete RIGHT breast ultrasound. Report: Heterogeneously dense fibroglandular tissue present throughout. No dilated ducts or cystic or solid lesions or gross tissue distortion or skin thickening evident at the 3:00 position to correspond with the region of clinical concern or throughout the remainder of the breast or ipsilateral axilla. IMPRESSION: #. Negative complete RIGHT breast ultrasound. Clinical follow-up suggested. ASSESSMENT: ACR BIRADS Category 1: Negative
[2018-08-08 14:07] VITALS: BP 124/85
--- NOTE | 2018-08-10 17:05 | ED ---
Breast Complaint - HPI Summary HPI Summary: Pt. is a 28 y.o female who presents to the ER for ongoing right sided breast pain x roughly 1 month. Pt. is 9 months. Pt. states she has been breast feeding well until a month ago. She states that she notice her right breast was tender and her baby would not feed from right side. She notes decreased milk production. She denies redness, swelling, mass, fever. She stats she has been seen at and by her PCP. PCP referred her to a airborne and air delivery specialist. Symptoms are mild in severity. Touching breast makes symptoms worse. Rest makes sxs worse. Pt. presents today bc pain is worse. - Allergy/Home Medications Allergies/Adverse Reactions: Allergies Allergy/AdvReac Type Severity Reaction Status Date / Time kiwi Allergy Airway Verified 08/08/18 11:04 Obstruction lamotrigine [From Lamictal] Allergy Hallucinati Verified 08/08/18 11:04 ons Home Medications: Home Medications Levothyroxine TAB* [Synthroid TAB*] 112 mcg PO DAILY 08/08/18 [History Confirmed 08/08/18] Norethindrone (NF) [Kiara (NF)] 0.35 mg PO DAILY 08/08/18 [History Confirmed 08/08/18] PMH/Surg Hx/FS Hx/Imm Hx Previously Healthy: Yes Endocrine/Hematology History: Reports: Hx Thyroid Disease Denies: Hx Diabetes Cardiovascular History: Denies: Hx Hypertension, Hx Pacemaker/ICD Respiratory History: Denies: Hx Asthma, Hx Chronic Obstructive Pulmonary Disease (COPD) GI History: Denies: Hx Ulcer History: Reports: Other Problems/Disorders - Medical Sep 2016 Denies: Hx Renal Disease Sensory History: Denies: Hx Hearing Aid Psychiatric History: Denies: Hx Panic Disorder - Surgical History Surgery Procedure, Year, and Place: Age 2 tRACHEITIS. RIGHT FOOT SURGERY AGE 14 REMOVAL OF SEWING NEEDLE - Immunization History Date of Tetanus Vaccine: UP TO DATE PER PT Infectious Disease History: No Infectious Disease History: Denies: Hx Clostridium Difficile, Hx Hepatitis, Hx Human Immunodeficiency Virus (HIV), Hx Shingles, Hx Tuberculosis, Hx Known/Suspected VRE, Hx Known/ Suspected VRSA, History Other Infectious Disease, Traveled Outside the [place] in Last 30 Days - Family History Known Family History: Positive: Other - hypothyroidism-mother Negative: Diabetes - Social History Occupation: Employed Full-time Lives: With Family Alcohol Use: None Hx Substance Use: No Substance Use Type: Reports: None Hx Tobacco Use: No Smoking Status (MU): Never Smoked Tobacco Review of Systems Constitutional: Negative Skin: Negative All Other Systems Reviewed And Are Negative: Yes Physical Exam Triage Information Reviewed: Yes Vital Signs On Initial Exam: Initial Vitals Temp Pulse Resp BP Pulse Ox 97.7 F 69 16 114/80 100 08/08/18 11:01 08/08/18 11:01 08/08/18 11:01 08/08/18 11:01 08/08/18 11:01 Vital Signs Reviewed: Yes Appearance: Positive: Well-Appearing - Pt. sitting on bed in NAD> Skin: Positive: Warm, Dry, Other - Breast exam performed with nurse in room. Tenderness over the medial aspect of right breast. No axilla lymphadenopathy. No erythema, edema, or masses noted. No nipple discharge. Head/Face: Positive: Normal Head/Face Inspection Eyes: Positive: Normal, EOMI Neurological: Positive: Normal, CN Intact II-III Diagnostics - Vital Signs Vital Signs Temp Pulse Resp BP Pulse Ox 08/08/18 14:05 97.5 F 75 16 124/85 99 08/08/18 11:01 97.7 F 69 16 114/80 100 - Laboratory Lab Statement: Any lab studies that have been ordered have been reviewed, and results considered in the medical decision making process. Breast Pain Course/Dx - Course Course Of Treatment: Pt. presenting with ongoing right sided breast pain. She is afebrile and well appearing. Exam is unremarkable other than mild tenderness to medial aspect of right breast. No signs of infection. Case discussed with Dr. Segal who recommend u/s to evaluate for possible abscess or mass given increased risk since recent . U/S is negative for acute findings, reading per radiology. Results discussed. Recommend f.u with OB for further evaluation. - Differential Diagnoses Differential Diagnosis/HQI/PQRI: Breast Abscess, Breast Mass, Mastitis - Diagnoses Provider Diagnoses: Breast pain Discharge - Sign-Out/Discharge Documenting (check all that apply): Patient Departure - Discharge Plan Condition: Good Disposition: HOME Patient Education Materials: and Plugged Ducts (ED) Referrals: Franky Garcia MD [Primary Care Provider] - Additional Instructions: Schedule a follow up appointment with your OB Return to ER if symptoms change or worsen - Billing Disposition and Condition Condition: GOOD Disposition: Home
== END 2018-08-08 14:05 | disposition home or self-care (01) ==
LOC: ED 10:40
DX: N64.4 Mastodynia (principal)
CPT/HCPCS: 99281

== ENCOUNTER 2019-04-01 09:30 | Emergency (ER) | payer OTHER ==
[2019-04-01] MEDS ORDERED: Ibuprofen TAB* 600 MG PO ONE (10:33)
--- NOTE | 2019-04-01 11:41 | ED ---
Back Pain - HPI Summary HPI Summary: Patient is a 28-year-old female who presents to the ED with has been complaining of mid to low back pain after slipping and falling on stairs approximately 30 minutes ARCHITECT. She arrives by ambulance. She is endorsing pain as an 8/10. She is unable to tell exactly where the pain is located, but states it is "mid to low back." She states she was able to ambulate, although briefly. Ambulance EMS had to help her into the rig. She was not given medications prior to arrival. She denies any bladder or bowel dysfunction. Denies any weakness, numbness or tingling to the bilateral lower extremities. She denies any pain otherwise or other symptoms. - History of Current Complaint Chief Complaint: EDBackInjuryPain Stated Complaint: BACK PAIN FALL PER EMS Time Seen by Provider: 04/01/19 09:35 Hx Obtained From: Patient Hx Last Menstrual Period: 07/20/08 Onset/Duration: Sudden Onset Onset/Duration: Started Minutes Ago Timing: Constant Back Pain Location: Is Discrete @ - low back Severity Initially: Moderate Severity Currently: Moderate Pain Intensity: 9 Pain Scale Used: 0-10 Numeric Character: Aching Aggravating Symptom(s): Movement, Bending, Walking Alleviating Symptom(s): Rest Associated Signs And Symptoms: Positive: Negative, Bruising - Risk Factors AAA Risk Factors: Negative TAD Risk Factors: Negative Cauda Equina Risk Factors: Negative Epidural Abscess Risk Factors: Negative - Allergies/Home Medications Allergies/Adverse Reactions: Allergies Allergy/AdvReac Type Severity Reaction Status Date / Time kiwi Allergy Airway Verified 04/01/19 09:40 Obstruction lamotrigine [From Lamictal] Allergy Hallucinati Verified 04/01/19 09:40 ons PMH/Surg Hx/FS Hx/Imm Hx Previously Healthy: Yes Endocrine/Hematology History: Reports: Hx Thyroid Disease Denies: Hx Diabetes Cardiovascular History: Denies: Hx Hypertension, Hx Pacemaker/ICD Respiratory History: Denies: Hx Asthma, Hx Chronic Obstructive Pulmonary Disease (COPD) GI History: Denies: Hx Ulcer History: Reports: Other Problems/Disorders - Medical Sep 2016 Denies: Hx Renal Disease Sensory History: Denies: Hx Hearing Aid Psychiatric History: Denies: Hx Panic Disorder - Surgical History Surgery Procedure, Year, and Place: Age 2 tRACHEITIS. RIGHT FOOT SURGERY AGE 14 REMOVAL OF SEWING NEEDLE - Immunization History Date of Tetanus Vaccine: UP TO DATE PER PT Hx Pertussis Vaccination: No Immunizations Up to Date: Yes Infectious Disease History: No Infectious Disease History: Denies: Hx Clostridium Difficile, Hx Hepatitis, Hx Human Immunodeficiency Virus (HIV), Hx Shingles, Hx Tuberculosis, Hx Known/Suspected VRE, Hx Known/ Suspected VRSA, History Other Infectious Disease, Traveled Outside the [place] in Last 30 Days - Family History Known Family History: Positive: Other - hypothyroidism-mother Negative: Diabetes - Social History Occupation: Employed Full-time Lives: With Family Alcohol Use: None Hx Substance Use: No Substance Use Type: Reports: None Hx Tobacco Use: No Smoking Status (MU): Never Smoked Tobacco Review of Systems Constitutional: Negative Negative: Fever, Chills, Fatigue, Skin Diaphoresis Negative: Palpitations, Chest Pain Negative: Shortness Of Breath, Cough Negative: Abdominal Pain, Vomiting, Diarrhea Genitourinary: Negative Positive: no symptoms reported, see HPI Positive: Arthralgia - back pain. Negative: Myalgia Skin: Negative All Other Systems Reviewed And Are Negative: Yes Physical Exam Triage Information Reviewed: Yes Vital Signs On Initial Exam: Initial Vitals Temp Pulse Resp BP Pulse Ox 97.5 F 68 18 114/76 96 04/01/19 09:35 04/01/19 09:35 04/01/19 09:35 04/01/19 09:35 04/01/19 09:35 Vital Signs Reviewed: Yes Appearance: Positive: Well-Appearing, Well-Nourished Skin: Positive: Warm, Skin Color Reflects Adequate Perfusion Head/Face: Positive: Normal Head/Face Inspection Eyes: Positive: EOMI, BRIA, Conjunctiva Clear Neck: Positive: Supple, No Lymphadenopathy Respiratory/Lung Sounds: Positive: Clear to Auscultation, Breath Sounds Present Cardiovascular: Positive: RRR, Pulses are Symmetrical in both Upper and Lower Extremities Musculoskeletal: Positive: Pain @ - low back pain Neurological: Positive: Sensory/Motor Intact, Alert, Oriented to Person Place, Time, Speech Normal Psychiatric: Positive: Affect/Mood Appropriate AVPU Assessment: Alert Diagnostics - Vital Signs Vital Signs Temp Pulse Resp BP Pulse Ox 04/01/19 09:35 97.5 F 68 18 114/76 96 - Laboratory Lab Statement: Any lab studies that have been ordered have been reviewed, and results considered in the medical decision making process. Back Pain Course/Dx - Course Course Of Treatment: Patient arrives by abulance into the ED. patient is endorsing pain to the mid and lower back. There is a small bruise to the mid back, no other evidence of trauma. CT of thoracic and lumbar spine reveal T7 and T10. Patient declines pain medications. She is given ibuprofen with good relief. She is ambulating well. Eating and drinking okay. Urinating well. She will f/u with neurosurgery. - Diagnoses Provider Diagnoses: Compression fracture - Provider Notifications Instructed by Provider To: Have Pt Call For Appt. Discharge - Sign-Out/Discharge Documenting (check all that apply): Patient Departure Patient Received Moderate/Deep Sedation with Procedure: No - Discharge Plan Condition: Stable Disposition: HOME Patient Education Materials: Vertebral Compression Fracture (ED) Referrals: Franky Garcia MD [Primary Care Provider] - Erika Walsh MD [Medical Doctor] - 1 Week Additional Instructions: Take ibuprofen 600 mg 3 times daily 5 days You may also take Tylenol 650 mg 3 times daily, But intermittently - He should be taking either medication every 3 hours Heat to the area Please follow up with neurosurgery You may return to work when you feel the pain has decreased, but I would give it a few weeks - Billing Disposition and Condition Condition: STABLE Disposition: Home
[2019-04-01 12:36] VITALS: BP 118/73
== END 2019-04-01 12:36 | disposition home or self-care (01) ==
LOC: ED 09:30
DX: S22.060A Wedge compression fracture of T7-T8 vertebra, initial encounter for closed fracture (principal); S22.070A Wedge compression fracture of T9-T10 vertebra, initial encounter for closed fracture; W10.9XXA Fall (on) (from) unspecified stairs and steps, initial encounter; Z88.8 Allergy status to other drugs, medicaments and biological substances
CPT/HCPCS: 72128; 72131; 99282; A9270-GY